=== PATIENT | male | born 1940 | race Caucasian/White ===

== ENCOUNTER 2016-04-13 02:44 | Emergency (ER) | payer MEDICARE, OTHER ==
[~2016-04-13 02:44] MED LIST: ASPI81TA85 PO; CALCTAB43 PO; CENT1TAB PO; CLOP75TA2 PO; SIMV40TA2 PO; TOPR50TA PO; VITA100041 PO; VITA100T20 PO
[2016-04-13 03:24] LABS: BASO # 0.1 K/mm3 (0.0-0.2); BASO % 1.5 % (0.0-1.0); EOS # 0.2 K/mm3 (0.0-0.50); EOS % 1.9 % (0.0-3.0); LARGE UNSTAINED CELL # 0.2 K/mm3 (0.0-0.4); LARGE UNSTAINED CELL % 2.3 % (0.0-4.0); MEAN CORPUSCULAR HEMOGLOBIN 32.1 pg (27.0-33.0); MEAN CORPUSCULAR HGB CONC 33.5 g/dl (32.0-36.5); MEAN CORPUSCULAR VOLUME 95.9 fl (80.0-96.0); MONO # 0.6 K/mm3 (0.0-0.8); MONO % 7.1 % (0.0-5.0); NEUTROPHILS # 6.9 K/mm3 (1.8-7.7); NEUTROPHILS % 78.3 % (36.0-66.0); PLATELET COUNT, AUTOMATED 179 k/mm3 (150-450); WHITE BLOOD COUNT 8.9 K/mm3 (4.0-10.0)
[2016-04-13 03:35] LABS: ANION GAP 9 MEQ/L (8-16); BLOOD UREA NITROGEN 20 MG/DL (7-18); CALCIUM LEVEL 8.6 MG/DL (8.8-10.2); CARBON DIOXIDE LEVEL 27 MEQ/L (21-32); CHLORIDE LEVEL 107 MEQ/L (98-107); CREATININE FOR GFR 1.01 MG/DL (0.70-1.30); GLOMERULAR FILTRATION RATE > 60.0 (>42); GLUCOSE, FASTING 97 MG/DL (83-110); SODIUM LEVEL 143 MEQ/L (136-145)
[2016-04-13] MEDS ORDERED: ISOVUE-370 76% 100ML VIAL (Q9967) As Ordered ONE (04:07)
--- NOTE | 2016-04-13 05:52 | REP ---
Clinical: Chest pain. Technique: PA and lateral. Comparison: 03/30/2015. Findings: Mediastinum and cardiac silhouette are normal. Lung joy demonstrate diffuse chronic interstitial changes subtle superimposed perihilar and right infrahilar infiltrates cannot be excluded. No effusion. No pneumothorax. Skeletal structures intact. Impression: Cannot exclude perihilar and right infrahilar atelectasis. Signed by Yousuf Balbuena MD 04/13/2016 05:44 A
--- NOTE | 2016-04-13 06:00 | REPUSA ---
CLINICAL HISTORY: Chest pain, exclude PE. TECHNIQUE: Multiple incremental axial, coronal and oblique images are obtained from the thoracic inle t to the upper abdomen. Intravenous contrast material was administered as per pulmonary embolism prot ocol. COMMENTS: There is excellent opacification of pulmonary arterial system without evidence for pulmonary embolism . Aorta is of normal caliber without evidence for dissection or aneurysm. There is no evidence of pleural or parenchymal mass. There are no pleural effusions. There is no evid ence of hilar or mediastinal lymphadenopathy. The heart and great vessels are within normal limits. G roundglass densities in the left upper lobe. Basilar atelectatic pulmonary changes. Images of the upper abdomen demonstrate no evidence of adrenal mass. The bony structures are free of lytic or blastic lesions. Multilevel degenerative changes are seen in volving the visualized thoracolumbar spine. Scattered calcifications are seen involving the aorta and major branches compatible with atherosclero sis. Small sliding-type hernia. 4.5 cm cyst of the left hepatic lobe. IMPRESSION: No evidence for pulmonary embolism. Groundglass densities in the left upper lobe suggestive of an infectious/inflammatory pathology. This was not present on the prior exam on 01/21/2015. Basilar atelectatic pulmonary changes. Thank you for your kind referral of this patient.
[2016-04-13] MEDS ORDERED: DOXYCYCLINE HYCLATE 100 MG TAB As Ordered ONE (06:17)
--- NOTE | 2016-04-13 06:26 | EDDOCDS ---
Nurse's Notes [facility] Name: Gera Damian Age: 75 yrs Sex: Male : 1940 Arrival Date: 04/13/2016 Time: 02:44 Bed 17 Private MD: Adrián Talamantes D Diagnosis: Bronchopneumonia, unspecified organism-DOUGLAS seen on CT only;Chest pain, unspecified Presentation: 04/13 02:52 Presenting complaint: Patient states: right sided chest pain, radiating to right arm. af2 denies n/v, or diaphoresis. pmh of mi with 4 stents. Aspirin was not taken prior to arrival. Adult Sepsis Screening: The patient does not have new or worsening altered mentation. Patient's respiratory rate is less than 22. Systolic blood pressure is greater than 100. Patient has a qSOFA score of 0- Negative Sepsis Screen. Suicide/Homicide risk assessment- the patient denies having any suicidal and/or homicidal ideations and does not present with any other emotional, behavioral or mental health complaints. Status: Patient is not a service associate or dependent. Transition of care: patient was not received from another setting of care. 02:52 Acuity: PAULINA Level 2 af2 02:52 Method Of Arrival: Walkin/Carried/Asstd af2 02:54 Presenting complaint: pain began 12 hours ago. af2 Triage Assessment: 02:57 General: Appears in no apparent distress, comfortable, Behavior is appropriate for age, af2 cooperative. Pain: Location: chest Pain currently is 4 out of 10 on a pain scale. The patient is triaged at the bedside. See Assessment in Nurses Notes section of ED record. Neurological: Level of Consciousness is awake, alert, obeys commands, Oriented to person, place, time. Cardiovascular: Rhythm is sinus rhythm No ectopy. Chest pain is described as Pain is 4 out of 10 on a pain scale. radiates to right arm(s) episodes are continuous began 12 hours ago. Respiratory: Airway is patent Respiratory effort is even, unlabored. Derm: Skin is normal. Historical: - Allergies: No known drug Allergies; - Home Meds: 1. Aspir-81 81 mg oral TbEC 1 tab once daily 2. clopidogrel 75 mg oral tab 1 tab once daily 3. metoprolol succinate 50 mg Tb24 once daily 4. simvastatin 40 mg Oral tab 1 tab once daily - PMHx: 4 cardiac stents; Hypertension; Hypercholesterolemia; - PSHx: 4 cardiac stents; Rotator Cuff Repair- Right; fusion of neck; Carpal Tunnel Repair- Bilateral; - The history from nurses notes was reviewed: and I agree with what is documented. - Social history: Smoking status: Patient states former smoker of tobacco. No barriers to communication noted, The patient speaks fluent [place], Speaks appropriately for age. - Family history: Not pertinent. - : The pt / caregiver states he / she is on anticoagulants: Plavix. Home medication list is obtained from the patient. - Hospitalizations: : No recent hospitalization is reported. - Exposure Risk Screening:: None identified. - Immunization history:: All immunizations up-to-date. - Social history:: the patient is a non-smoker, the patient does not drink alcohol. Screenin:59 Screening information is obtained from the patient. Fall risk: At risk due to age, af2 prior history of falls, The following interventions are performed due to a positive Fall Risk Screen: Fall Risk is added to Special Handling on the patient Summary Screen. A Fall Risk Bracelet was applied to the patient. Side Rails are placed in the up position. A Call [place] is given with instruction to call for help when getting out of bed. Assistance ADL's: requires no assistance with activities of daily living. Abuse/DV Screen: The patient / caregiver reports he/she is: not in a situation that causes fear, pain or injury. Nutritional screening: No deficits noted. Advance Directives: Currently, there is no health care proxy. home support is adequate. Assessment: 03:06 General: Appears in no apparent distress, Behavior is appropriate for age, cooperative. tm5 Pain: Location: chest Pain currently is 4 out of 10 on a pain scale. Quality of pain is described as heavy, pressure, Pain began about 5 hours ago tonight. Neurological: Level of Consciousness is awake, alert, obeys commands, Oriented to person, place, time. Cardiovascular: Rhythm is sinus rhythm No ectopy. Respiratory: Airway is patent Respiratory effort is even, unlabored, Respiratory pattern is regular, symmetrical, Breath sounds are clear bilaterally. GI: No deficits noted. : No deficits noted. Derm: Skin is pink, warm & dry. 04:34 Reassessment: Patient appears in no apparent distress at this time. Patient states tm5 feeling better. Patient states symptoms have improved. 05:56 Reassessment: Patient appears in no apparent distress at this time. Patient states tm5 feeling better. Patient states symptoms have improved. Cardiovascular: Rhythm is sinus rhythm. 06:24 Reassessment: Patient appears in no apparent distress at this time. Patient states tm5 feeling better. Patient states symptoms have improved. Vital Signs: 02:54 BP 143 / 85 LA Supine (auto/); Pulse 97; Resp 18 S; Temp 97.9(TE); Pulse Ox 94% on R/A; af2 Weight 95.25 kg (R); Height 6 ft. 1 in. (185.42 cm) (R); Pain 4/10; 03:02 BP 132 / 81 (auto/); tm5 03:03 Pulse 92 MON; Pulse Ox 95% on 2 lpm NC; Pain 3/10; tm5 03:32 BP 143 / 84 (auto/); tm5 03:33 Pulse 92 MON; Resp 20 S; Pulse Ox 97% on R/A; tm5 03:47 BP 133 / 78 (auto/); tm5 03:48 Pulse 90 MON; Resp 20 S; Pulse Ox 97% on R/A; tm5 04:02 BP 127 / 71 (auto/); tm5 04:03 Pulse 88 MON; Resp 18 S; Pulse Ox 96% on 2 lpm NC; Pain 0/10; tm5 04:17 BP 126 / 66 (auto/); tm5 04:18 Pulse 92 MON; tm5 04:32 BP 133 / 75 (auto/); tm5 04:32 Pulse 90 MON; Resp 20 S; Pulse Ox 95% on 2 lpm NC; tm5 04:47 BP 138 / 79 (auto/); tm5 04:48 Pulse 90 MON; tm5 05:02 BP 128 / 81 (auto/); tm5 05:02 Pulse 90 MON; tm5 05:17 BP 111 / 58 (auto/); tm5 05:17 Pulse 90 MON; Resp 20 S; Pulse Ox 96% on 2 lpm NC; Pain 0/10; tm5 06:24 BP 123 / 58; Pulse 72; Resp 18; Temp 97.8(O); Pulse Ox 95% on R/A; Pain 0/10; tm5 02:54 Body Mass Index 27.71 (95.25 kg, 185.42 cm) af2 Vitals: 02:54 Log In Time: April 13, 2016 at 02:40. af2 ED Course: 02:45 Patient visited by Devin Niño Reg. pm4 02:45 Adrián Talamantes is Private Physician. pm4 02:45 Patient moved to Waiting pm4 02:46 Katlin Andrew,RN is Primary Nurse. af2 02:46 Patient moved to 17 af2 02:54 Triage Initiated af2 02:58 The patient / caregiver is instructed regarding the plan of care and ED course. Cardiac af2 monitor on. Pulse ox on. NIBP on. 02:59 Patient visited by Augustus Landeros PCA. kb5 02:59 EKG done. (by ED staff). Reviewed by Luis Otto MD. kb5 03:03 Awaiting ED physician evaluation. tm5 03:06 Patient visited by Alyson Phan RN. tm5 03:06 Inserted saline lock: 18 gauge in right antecubital area and blood collected. The tm5 patient tolerated the procedure well. Labs drawn. (by ED staff). Sent per order to lab. O2 via nasal cannula \T\ 2L/min. 03:11 Basic Metabolic Profile Sent. tm5 03:11 CBC with Diff Sent. tm5 03:11 Cardiac Injury Profile Sent. tm5 03:12 Troponin Sent. tm5 03:14 Luis Otto MD is Attending Physician. pc 03:16 Patient moved to Radiology juve 03:17 Patient visited by Luis Otto MD. pc 03:21 Patient moved to radiology. tm5 03:25 Patient visited by Alyson Phan RN. tm5 03:25 Patient moved back from radiology. tm5 03:28 Patient moved to 17 juve 03:30 Patient visited by Alyson Phan RN. tm5 03:30 ED physician to see patient. tm5 04:30 Patient visited by Luis Otto MD. pc 04:34 Patient visited by Alyson Phan RN. tm5 05:01 [facility] Payment Agreement was scanned into [employer] and attached to record. hs2 05:56 Patient visited by Alyson Phan RN. tm5 06:12 Adrián Talamantes MD is Referral Physician. pc 06:15 Chest, 2 View (pa\E\lat) Returned. EDMS 06:15 CT Chest Angio R/O PE Returned. EDMS 06:23 Patient visited by Alyson Phan RN. tm5 06:24 Discontinued lock intact, bleeding controlled, pressure dressing applied, No tm5 redness/swelling at site. No procedures done that require assistance. Administered Medications: 06:23 Drug: Doxycycline 100 mg [doxycycline hyclate 100 mg tablet (1 tabs)] Route: PO; tm5 06:24 Follow up: Response: Pt left department before re-evaluation is appropriate tm5 Order Results: Lab Order: Basic Metabolic Profile; SPEC'M 04/13/16 03:04 Test: GLUCOSE, FASTING; Value: 97; Range: 83-110; Units: MG/DL; Status: F Test: BLOOD UREA NITROGEN; Value: 20; Range: 7-18; Abnormal: Above high normal; Units: MG/DL; Status: F Test: CREATININE FOR GFR; Value: 1.01; Range: 0.70-1.30; Units: MG/DL; Status: F Test: GLOMERULAR FILTRATION RATE; Value: > 60.0; Range: >42; Status: F Test: SODIUM LEVEL; Value: 143; Range: 136-145; Units: MEQ/L; Status: F Test: POTASSIUM SERUM; Value: 4.0; Range: 3.5-5.1; Units: MEQ/L; Status: F Test: CHLORIDE LEVEL; Value: 107; Range: 98-107; Units: MEQ/L; Status: F Test: CARBON DIOXIDE LEVEL; Value: 27; Range: 21-32; Units: MEQ/L; Status: F Test: ANION GAP; Value: 9; Range: 8-16; Units: MEQ/L; Status: F Test: CALCIUM LEVEL; Value: 8.6; Range: 8.8-10.2; Abnormal: Below low normal; Units: MG/DL; Status: F Test Note: ; Units are mL/min/1.73 m2 Chronic Kidney Disease Staging per NKF: Stage I & II GFR >=60 Normal to Mildly Decreased Stage III GFR 30-59 Moderately Decreased Stage IV GFR 15-29 Severely Decreased Stage V GFR <15 Very Little GFR Left ESRD GFR <15 on BLENDER Lab Order: CBC with Diff; SPEC'M 04/13/16 03:04 Test: WHITE BLOOD COUNT; Value: 8.9; Range: 4.0-10.0; Units: K/mm3; Status: F Test: RED BLOOD COUNT; Value: 4.45; Range: 4.30-6.10; Units: M/mm3; Status: F Test: HEMOGLOBIN; Value: 14.3; Range: 14.0-18.0; Units: g/dl; Status: F Test: HEMATOCRIT; Value: 42.7; Range: 42.0-52.0; Units: %; Status: F Test: MEAN CORPUSCULAR VOLUME; Value: 95.9; Range: 80.0-96.0; Units: fl; Status: F Test: MEAN CORPUSCULAR HEMOGLOBIN; Value: 32.1; Range: 27.0-33.0; Units: pg; Status: F Test: MEAN CORPUSCULAR HGB CONC; Value: 33.5; Range: 32.0-36.5; Units: g/dl; Status: F Test: RED CELL DISTRIBUTION WIDTH; Value: 13.0; Range: 11.5-14.5; Units: %; Status: F Test: PLATELET COUNT, AUTOMATED; Value: 179; Range: 150-450; Units: k/mm3; Status: F Test: NEUTROPHILS %; Value: 78.3; Range: 36.0-66.0; Abnormal: Above high normal; Units: %; Status: F Test: LYMPH %; Value: 9.0; Range: 24.0-44.0; Abnormal: Below low normal; Units: %; Status: F Test: MONO %; Value: 7.1; Range: 0.0-5.0; Abnormal: Above high normal; Units: %; Status: F Test: EOS %; Value: 1.9; Range: 0.0-3.0; Units: %; Status: F Test: BASO %; Value: 1.5; Range: 0.0-1.0; Abnormal: Above high normal; Units: %; Status: F Test: LARGE UNSTAINED CELL %; Value: 2.3; Range: 0.0-4.0; Units: %; Status: F Test: NEUTROPHILS #; Value: 6.9; Range: 1.8-7.7; Units: K/mm3; Status: F Test: LYMPH #; Value: 1.0; Range: 1.5-4.5; Abnormal: Below low normal; Units: K/mm3; Status: F Test: MONO #; Value: 0.6; Range: 0.0-0.8; Units: K/mm3; Status: F Test: EOS #; Value: 0.2; Range: 0.0-0.50; Units: K/mm3; Status: F Test: BASO #; Value: 0.1; Range: 0.0-0.2; Units: K/mm3; Status: F Test: LARGE UNSTAINED CELL #; Value: 0.2; Range: 0.0-0.4; Units: K/mm3; Status: F Lab Order: Cardiac Injury Profile; SPEC'M 04/13/16 03:04 Test: CPK CREATINE PHOSPHOKINASE; Value: 47; Range: 39-308; Units: U/L; Status: F Test: CK-MB VALUE MASS; Value: 1.0; Range: 0.0-3.6; Units: NG/ML; Status: F Test: MB/CK RELATIVE INDEX; Value: 2.12; Range: < OR =4; Status: F Test Note: ; DIAGNOSIS CRITERIA MMB ng/ml Relative Index (RI) NON-AMI < or = 5 N/A [place]ONE > 5 < or = 4 AMI > 5 > 4 Lab Order: Troponin; SPEC'M 04/13/16 03:04 Test: TROPONIN I; Value: < 0.02; Range: < 0.10; Units: NG/ML; Status: F Test Note: ; Troponin I Reference Interval for Biomeme LOCI: 99th Percentile= 0.00-0.045 ng/ml Risk Stratification: <= 0.10 ng/ml Decreased Risk for Adverse Clinical Events. 0.10-1.50 ng/ml Increased Risk for Adverse Clinical Events. Evaluation of additional criterion and/or repeat testing in 2-6 hours is suggested to rule out myocardial damage. >= 1.50 ng/ml Indicative of Myocardial Injury. Radiology Order: Chest, 2 View (pa\E\lat) Test: Chest, 2 View (pa\E\lat) REASON FOR EXAMINATION: Chest Pain; Clinical: Chest pain.; ; Technique: PA and lateral.; ; Comparison: 03/30/2015.; ; Findings:; Mediastinum and cardiac silhouette are normal. Lung joy demonstrate diffuse; chronic interstitial changes subtle superimposed perihilar and right infrahilar; infiltrates cannot be excluded. No effusion. No pneumothorax. Skeletal; structures intact.; ; Impression:; Cannot exclude perihilar and right infrahilar atelectasis.; ; ; Signed by; Youusf Balbuena MD 04/13/2016 05:44 A; Radiology Order: CT Chest Angio R/O PE Test: CT Chest Angio R/O PE REASON FOR EXAMINATION: Chest Pain; ; CLINICAL HISTORY: Chest pain, exclude PE.; TECHNIQUE: Multiple incremental axial, coronal and oblique images are obtained from the thoracic inle; t to the upper abdomen. Intravenous contrast material was administered as per pulmonary embolism prot; ocol.; COMMENTS:; There is excellent opacification of pulmonary arterial system without evidence for pulmonary embolism; . Aorta is of normal caliber without evidence for dissection or aneurysm.; There is no evidence of pleural or parenchymal mass. There are no pleural effusions. There is no evid; ence of hilar or mediastinal lymphadenopathy. The heart and great vessels are within normal limits. G; roundglass densities in the left upper lobe. Basilar atelectatic pulmonary changes.; Images of the upper abdomen demonstrate no evidence of adrenal mass.; The bony structures are free of lytic or blastic lesions. Multilevel degenerative changes are seen in; volving the visualized thoracolumbar spine.; Scattered calcifications are seen involving the aorta and major branches compatible with atherosclero; sis.; Small sliding-type hernia.; 4.5 cm cyst of the left hepatic lobe.; IMPRESSION:; No evidence for pulmonary embolism.; Groundglass densities in the left upper lobe suggestive of an infectious/inflammatory pathology. This; was not present on the prior exam on 01/21/2015.; Basilar atelectatic pulmonary changes.; Thank you for your kind referral of this patient.; ; Outcome: 06:14 Discharge ordered by Provider. pc 06:24 Discharge Assessment: Patient awake, alert and oriented x 3. No cognitive and/or tm5 functional deficits noted. Patient verbalized understanding of disposition instructions. patient administered narcotics - no. The following High Risk Discharge criteria are identified: None. Discharged to home ambulatory, with significant other. Condition: good Condition: stable Condition: improved. Discharge instructions given to patient, Instructed on discharge instructions, follow up and referral plans. medication usage, Demonstrated understanding of instructions, medications, Pt was receptive of discharge instructions/ teaching. Prescriptions given X 1, Work note provided to patient. CT Study completed. Property :Personal belongings accompany Pt. 06:26 Patient left the ED. tm5 Signatures: Dispatcher [employer] EDMS Luis Otto MD MD pc Bartlett, Floyd fab Bancroft, Kristopher, GARDENING INSTRUCTOR GARDENING INSTRUCTOR kb5 Katlin Andrew,RN RN af2 Alondra Ruiz, Reg Reg hs2 Alyson PhanRN RN tm5 Devin Niño, Reg Reg pm4 [id number]
--- NOTE | 2016-04-13 06:26 | EDDOCDS ---
Physician Documentation [facility] Name: Gera Damian Age: 75 yrs Sex: Male : 1940 Arrival Date: 04/13/2016 Time: 02:44 Bed 17 Private MD: Adrián Talamantes D Disposition: 04/13 06:09 Critical Care: Critical care not applicable. pc Disposition: 04/13/16 06:14 Discharged to Home/Self Care. Impression: Bronchopneumonia, unspecified organism - DOUGLAS seen on CT only, Chest pain, unspecified. - Condition is Stable. - Discharge Instructions: Pneumonia, Adult. - Prescriptions for Doxycycline Monohydrate 100 mg Oral Tablet - take 1 tablet by ORAL route every 12 hours for 10 days; 20 tablet. - Medication Reconciliation, Local Pharmacy Hours, Work Release Form - 2 day form. - Follow up: Adrián Talamantes MD; When: 4 - 5 days; Reason: Recheck today's complaints, Continuance of care. - Problem is new. - Symptoms have improved. HPI: 04:02 This 75 yrs old Male presents to ER via Walkin/Carried/Asstd with complaints pc of Chest Pain. 04:02 The history is obtained from the patient. Symptoms began suddenly 22 hr. ago, He was pc sitting in his recliner at 6am yesterday morning . Symptoms are ongoing and are constant. At its worst, the symptoms were a 4 out of 10. In the emergency department, the symptoms are a 3 out of 10. The chest pain is described as a pressure. It is located primarily in the mid-sternal area. The pain does not radiate. The chest pain was associated with no other symptoms. The symptoms are aggravated by nothing. The symptoms are alleviated by nothing. The patient's known risk factors for coronary artery disease include: a prior history of coronary artery disease, The patient's known risk factors for pulmonary embolism include: none. The patient has not experienced similar symptoms in the past. The patient has been recently seen by their primary care provider, for a routine, regularly scheduled appointment. Historical: - Allergies: No known drug Allergies; - Home Meds: 1. Aspir-81 81 mg oral TbEC 1 tab once daily 2. clopidogrel 75 mg oral tab 1 tab once daily 3. metoprolol succinate 50 mg Tb24 once daily 4. simvastatin 40 mg Oral tab 1 tab once daily - PMHx: 4 cardiac stents; Hypertension; Hypercholesterolemia; - PSHx: 4 cardiac stents; Rotator Cuff Repair- Right; fusion of neck; Carpal Tunnel Repair- Bilateral; - The history from nurses notes was reviewed: and I agree with what is documented. - Social history: Smoking status: Patient states former smoker of tobacco. No barriers to communication noted, The patient speaks fluent Croatian, Speaks appropriately for age. - Family history: Not pertinent. - : The pt / caregiver states he / she is on anticoagulants: Plavix. Home medication list is obtained from the patient. - Hospitalizations: : No recent hospitalization is reported. - Exposure Risk Screening:: None identified. - Immunization history:: All immunizations up-to-date. - Social history:: the patient is a non-smoker, the patient does not drink alcohol. ROS: 04:02 All systems are negative except as listed. The cardiovascular, respiratory, pc gastrointestinal and neurological components are also addressed in the HPI. Exam: 04:02 General Appearance: alert, no acute distress. pc 04:02 ENT: ear, nose and throat normal, pharynx normal. 04:02 Neck: supple, non-tender, no masses are appreciated. 04:02 Respiratory: no respiratory distress, normal breath sounds, chest non-tender. 04:02 Cardiovascular: regular pulse rate, regular heart rhythm, normal heart sounds, equal and full pulses bilaterally. 04:02 Abdomen: soft, non-tender, no organomegaly, normal bowel sounds. 04:02 Skin: skin color is normal, warm, dry. 04:02 Extremities: The extremities have a grossly normal appearance, are non-tender, without acute ROM abnormalities. 04:02 Neuro: alert, oriented to person, place and time, cranial nerves normal as tested, no motor deficits, no sensory deficits. 04:02 Psych: normal mood. Vital Signs: 02:54 BP 143 / 85 LA Supine (auto/); Pulse 97; Resp 18 S; Temp 97.9(TE); Pulse Ox 94% on R/A; af2 Weight 95.25 kg / 209.99 lbs (R); Height 6 ft. 1 in. (185.42 cm) (R); Pain 4/10; 03:02 BP 132 / 81 (auto/); tm5 03:03 Pulse 92 MON; Pulse Ox 95% on 2 lpm NC; Pain 3/10; tm5 03:32 BP 143 / 84 (auto/); tm5 03:33 Pulse 92 MON; Resp 20 S; Pulse Ox 97% on R/A; tm5 03:47 BP 133 / 78 (auto/); tm5 03:48 Pulse 90 MON; Resp 20 S; Pulse Ox 97% on R/A; tm5 04:02 BP 127 / 71 (auto/); tm5 04:03 Pulse 88 MON; Resp 18 S; Pulse Ox 96% on 2 lpm NC; Pain 0/10; tm5 04:17 BP 126 / 66 (auto/); tm5 04:18 Pulse 92 MON; tm5 04:32 BP 133 / 75 (auto/); tm5 04:32 Pulse 90 MON; Resp 20 S; Pulse Ox 95% on 2 lpm NC; tm5 04:47 BP 138 / 79 (auto/); tm5 04:48 Pulse 90 MON; tm5 05:02 BP 128 / 81 (auto/); tm5 05:02 Pulse 90 MON; tm5 05:17 BP 111 / 58 (auto/); tm5 05:17 Pulse 90 MON; Resp 20 S; Pulse Ox 96% on 2 lpm NC; Pain 0/10; tm5 06:24 BP 123 / 58; Pulse 72; Resp 18; Temp 97.8(O); Pulse Ox 95% on R/A; Pain 0/10; tm5 02:54 Body Mass Index 27.71 (95.25 kg, 185.42 cm) af2 MDM: 02:48 ECG WITH READING ER PHYS+CARDIAG ordered. 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 tm5 03:10 IV Saline Lock ordered. tm5 03:10 Rhythm Strip to chart ordered. tm5 03:10 Undress patient appropriately for examination ordered. tm5 03:11 Basic Metabolic Profile Ordered. EDMS 03:11 CBC with Diff Ordered. EDMS 03:11 Cardiac Injury Profile Ordered. EDMS 03:11 Troponin Ordered. EDMS 03:14 Chest, 2 View (pa\E\lat) Ordered. EDMS 04:01 Basic Metabolic Profile Reviewed. pc 04:01 CBC with Diff Reviewed. pc 04:01 Cardiac Injury Profile Reviewed. pc 04:01 Troponin Reviewed. pc 04:02 Differential diagnosis: pneumonia, pulmonary embolus, unstable angina. Plan: labs, EKG, pc imaging. The patient not medicated with aspirin in the Emergency Department because the patient had taken aspirin within 24 hours prior to arrival in the Emergency Department. Test interpretation: EKG. 04:03 CT Chest Angio R/O PE Ordered. [facility] 04:44 Financial registration complete. hs2 05:01 [facility] Payment Agreement was scanned into [employer] and attached to record. hs2 06:09 Data reviewed: old medical records, vital signs, nurses notes, EKG(s), lab test pc results, all radiology studies and available results. Test interpretation: LAB - all labs as ordered have been reviewed, interpreted and considered in the overall management of the clinical presentation; X-RAY - interpreted by me, 2 view chest, no acute disease, interpreted by Radiologist and personally reviewed, Chest CT; DOUGLAS infiltrate/inflammation, no PE, else NAD. The patient has been re-examined and re-evaluated. The patient's symptoms have mildly improved after treatment. Disposition: The historical points, examination findings, and any diagnostic results supporting the provided diagnosis, were discussed with the patient or legal guardian. The need for outpatient follow up with the provider listed on their discharge instructions was discussed. They were encouraged to return to [facility], or the nearest ED, if symptoms worsen/persist, or for any other questions/concerns. 06:11 Doxycycline 100 mg PO once ordered. pc EC:02 Rate is 94 beats/min. Rhythm is regular, Normal Sinus Rhythm. QRS [place] is Normal. AR pc interval is normal. QRS interval is normal. QT interval is normal. Q waves are Old in leads III, aVF. T waves are Normal. ST Segment is depressed in leads III, aVF, V4, V5, V6, <1mm. Clinical impression: Normal Sinus Rhythm, LVH with strain pattern, and Inferior [place] - age indeterminate. No change from previous ECG in March,. Administered Medications: 06:23 Drug: Doxycycline 100 mg [doxycycline hyclate 100 mg tablet (1 tabs)] Route: PO; tm5 06:24 Follow up: Response: Pt left department before re-evaluation is appropriate tm5 Signatures: Dispatcher [employer] [facility] Luis Otto MD MD pc Katlin Andrew RN RN af2 Alondra Ruiz, Reg Reg hs2 Matice,Alyson,RN RN tm5 The chart was reviewed and I authenticate all verbal orders and agree with the evaluation and treatment provided.Attachments: 05:01 [facility] Payment Agreement hs2 MTDD
--- NOTE | 2016-04-13 07:29 | ECGEPIP ---
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
--- NOTE | 2016-04-15 07:27 | EDDOCDS ---
Nurse's Notes [facility] Name: Gera Correia Age: 75 yrs Sex: Male : 1940 Arrival Date: 04/13/2016 Time: 02:44 Bed 17 Private MD: Adrián Talamantes D Diagnosis: Bronchopneumonia, unspecified organism-DOUGLAS seen on CT only;Chest pain, unspecified Presentation: 04/13 02:52 Presenting complaint: Patient states: right sided chest pain, radiating to right arm. af2 denies n/v, or diaphoresis. pmh of mi with 4 stents. Aspirin was not taken prior to arrival. Adult Sepsis Screening: The patient does not have new or worsening altered mentation. Patient's respiratory rate is less than 22. Systolic blood pressure is greater than 100. Patient has a qSOFA score of 0- Negative Sepsis Screen. Suicide/Homicide risk assessment- the patient denies having any suicidal and/or homicidal ideations and does not present with any other emotional, behavioral or mental health complaints. Status: Patient is not a service vehicle operator or dependent. Transition of care: patient was not received from another setting of care. 02:52 Acuity: PAULINA Level 2 af2 02:52 Method Of Arrival: Walkin/Carried/Asstd af2 02:54 Presenting complaint: pain began 12 hours ago. af2 Triage Assessment: 02:57 General: Appears in no apparent distress, comfortable, Behavior is appropriate for age, af2 cooperative. Pain: Location: chest Pain currently is 4 out of 10 on a pain scale. The patient is triaged at the bedside. See Assessment in Nurses Notes section of ED record. Neurological: Level of Consciousness is awake, alert, obeys commands, Oriented to person, place, time. Cardiovascular: Rhythm is sinus rhythm No ectopy. Chest pain is described as Pain is 4 out of 10 on a pain scale. radiates to right arm(s) episodes are continuous began 12 hours ago. Respiratory: Airway is patent Respiratory effort is even, unlabored. Derm: Skin is normal. Historical: - Allergies: No known drug Allergies; - Home Meds: 1. Aspir-81 81 mg oral TbEC 1 tab once daily 2. clopidogrel 75 mg oral tab 1 tab once daily 3. metoprolol succinate 50 mg Tb24 once daily 4. simvastatin 40 mg Oral tab 1 tab once daily - PMHx: 4 cardiac stents; Hypertension; Hypercholesterolemia; - PSHx: 4 cardiac stents; Rotator Cuff Repair- Right; fusion of neck; Carpal Tunnel Repair- Bilateral; - The history from nurses notes was reviewed: and I agree with what is documented. - Social history: Smoking status: Patient states former smoker of tobacco. No barriers to communication noted, The patient speaks fluent Botswanan, Speaks appropriately for age. - Family history: Not pertinent. - : The pt / caregiver states he / she is on anticoagulants: Plavix. Home medication list is obtained from the patient. - Hospitalizations: : No recent hospitalization is reported. - Exposure Risk Screening:: None identified. - Immunization history:: All immunizations up-to-date. - Social history:: the patient is a non-smoker, the patient does not drink alcohol. Screenin:59 Screening information is obtained from the patient. Fall risk: At risk due to age, af2 prior history of falls, The following interventions are performed due to a positive Fall Risk Screen: Fall Risk is added to Special Handling on the patient Summary Screen. A Fall Risk Bracelet was applied to the patient. Side Rails are placed in the up position. A Call [place] is given with instruction to call for help when getting out of bed. Assistance ADL's: requires no assistance with activities of daily living. Abuse/DV Screen: The patient / caregiver reports he/she is: not in a situation that causes fear, pain or injury. Nutritional screening: No deficits noted. Advance Directives: Currently, there is no health care proxy. home support is adequate. Assessment: 03:06 General: Appears in no apparent distress, Behavior is appropriate for age, cooperative. tm5 Pain: Location: chest Pain currently is 4 out of 10 on a pain scale. Quality of pain is described as heavy, pressure, Pain began about 5 hours ago tonight. Neurological: Level of Consciousness is awake, alert, obeys commands, Oriented to person, place, time. Cardiovascular: Rhythm is sinus rhythm No ectopy. Respiratory: Airway is patent Respiratory effort is even, unlabored, Respiratory pattern is regular, symmetrical, Breath sounds are clear bilaterally. GI: No deficits noted. : No deficits noted. Derm: Skin is pink, warm & dry. 04:34 Reassessment: Patient appears in no apparent distress at this time. Patient states tm5 feeling better. Patient states symptoms have improved. 05:56 Reassessment: Patient appears in no apparent distress at this time. Patient states tm5 feeling better. Patient states symptoms have improved. Cardiovascular: Rhythm is sinus rhythm. 06:24 Reassessment: Patient appears in no apparent distress at this time. Patient states tm5 feeling better. Patient states symptoms have improved. Vital Signs: 02:54 BP 143 / 85 LA Supine (auto/); Pulse 97; Resp 18 S; Temp 97.9(TE); Pulse Ox 94% on R/A; af2 Weight 95.25 kg (R); Height 6 ft. 1 in. (185.42 cm) (R); Pain 4/10; 03:02 BP 132 / 81 (auto/); tm5 03:03 Pulse 92 MON; Pulse Ox 95% on 2 lpm NC; Pain 3/10; tm5 03:32 BP 143 / 84 (auto/); tm5 03:33 Pulse 92 MON; Resp 20 S; Pulse Ox 97% on R/A; tm5 03:47 BP 133 / 78 (auto/); tm5 03:48 Pulse 90 MON; Resp 20 S; Pulse Ox 97% on R/A; tm5 04:02 BP 127 / 71 (auto/); tm5 04:03 Pulse 88 MON; Resp 18 S; Pulse Ox 96% on 2 lpm NC; Pain 0/10; tm5 04:17 BP 126 / 66 (auto/); tm5 04:18 Pulse 92 MON; tm5 04:32 BP 133 / 75 (auto/); tm5 04:32 Pulse 90 MON; Resp 20 S; Pulse Ox 95% on 2 lpm NC; tm5 04:47 BP 138 / 79 (auto/); tm5 04:48 Pulse 90 MON; tm5 05:02 BP 128 / 81 (auto/); tm5 05:02 Pulse 90 MON; tm5 05:17 BP 111 / 58 (auto/); tm5 05:17 Pulse 90 MON; Resp 20 S; Pulse Ox 96% on 2 lpm NC; Pain 0/10; tm5 06:24 BP 123 / 58; Pulse 72; Resp 18; Temp 97.8(O); Pulse Ox 95% on R/A; Pain 0/10; tm5 02:54 Body Mass Index 27.71 (95.25 kg, 185.42 cm) af2 Vitals: 02:54 Log In Time: April 13, 2016 at 02:40. af2 ED Course: 02:45 Patient visited by Devin Niño Reg. pm4 02:45 Adrián Talamantes is Private Physician. pm4 02:45 Patient moved to Waiting pm4 02:46 Katlin Andrew,RN is Primary Nurse. af2 02:46 Patient moved to 17 af2 02:54 Triage Initiated af2 02:58 The patient / caregiver is instructed regarding the plan of care and ED course. Cardiac af2 monitor on. Pulse ox on. NIBP on. 02:59 Patient visited by Augustus Landeros PCA. kb5 02:59 EKG done. (by ED staff). Reviewed by Luis Otto MD. kb5 03:03 Awaiting ED physician evaluation. tm5 03:06 Patient visited by Alyson Phan RN. tm5 03:06 Inserted saline lock: 18 gauge in right antecubital area and blood collected. The tm5 patient tolerated the procedure well. Labs drawn. (by ED staff). Sent per order to lab. O2 via nasal cannula \T\ 2L/min. 03:11 Basic Metabolic Profile Sent. tm5 03:11 CBC with Diff Sent. tm5 03:11 Cardiac Injury Profile Sent. tm5 03:12 Troponin Sent. tm5 03:14 Luis Otto MD is Attending Physician. pc 03:16 Patient moved to Radiology juve 03:17 Patient visited by Luis Otto MD. pc 03:21 Patient moved to radiology. tm5 03:25 Patient visited by Alyson Phan RN. tm5 03:25 Patient moved back from radiology. tm5 03:28 Patient moved to 17 juve 03:30 Patient visited by Alyson Phan RN. tm5 03:30 ED physician to see patient. tm5 04:30 Patient visited by Luis Otto MD. pc 04:34 Patient visited by Alyson Phan RN. tm5 05:01 [facility] Payment Agreement was scanned into [employer] and attached to record. hs2 05:56 Patient visited by Alyson Phan RN. tm5 06:12 Adrián Talamantes MD is Referral Physician. pc 06:15 Chest, 2 View (pa\E\lat) Returned. EDMS 06:15 CT Chest Angio R/O PE Returned. EDMS 06:23 Patient visited by Alyson Phan RN. tm5 06:24 Discontinued lock intact, bleeding controlled, pressure dressing applied, No tm5 redness/swelling at site. No procedures done that require assistance. 07:36 ECG WITH READING ER PHYS Returned. EDMS 14:46 ECG/EKG was scanned into [employer] and attached to record. gb 14:46 Radiology Report was scanned into [employer] and attached to record. gb Administered Medications: 06:23 Drug: Doxycycline 100 mg [doxycycline hyclate 100 mg tablet (1 tabs)] Route: PO; tm5 06:24 Follow up: Response: Pt left department before re-evaluation is appropriate tm5 Order Results: Lab Order: Basic Metabolic Profile; SPEC'M 04/13/16 03:04 Test: GLUCOSE, FASTING; Value: 97; Range: 83-110; Units: MG/DL; Status: F Test: BLOOD UREA NITROGEN; Value: 20; Range: 7-18; Abnormal: Above high normal; Units: MG/DL; Status: F Test: CREATININE FOR GFR; Value: 1.01; Range: 0.70-1.30; Units: MG/DL; Status: F Test: GLOMERULAR FILTRATION RATE; Value: > 60.0; Range: >42; Status: F Test: SODIUM LEVEL; Value: 143; Range: 136-145; Units: MEQ/L; Status: F Test: POTASSIUM SERUM; Value: 4.0; Range: 3.5-5.1; Units: MEQ/L; Status: F Test: CHLORIDE LEVEL; Value: 107; Range: 98-107; Units: MEQ/L; Status: F Test: CARBON DIOXIDE LEVEL; Value: 27; Range: 21-32; Units: MEQ/L; Status: F Test: ANION GAP; Value: 9; Range: 8-16; Units: MEQ/L; Status: F Test: CALCIUM LEVEL; Value: 8.6; Range: 8.8-10.2; Abnormal: Below low normal; Units: MG/DL; Status: F Test Note: ; Units are mL/min/1.73 m2 Chronic Kidney Disease Staging per NKF: Stage I & II GFR >=60 Normal to Mildly Decreased Stage III GFR 30-59 Moderately Decreased Stage IV GFR 15-29 Severely Decreased Stage V GFR <15 Very Little GFR Left ESRD GFR <15 on SOCIAL INSURANCE ADMINISTRATOR Lab Order: CBC with Diff; SPEC'M 04/13/16 03:04 Test: WHITE BLOOD COUNT; Value: 8.9; Range: 4.0-10.0; Units: K/mm3; Status: F Test: RED BLOOD COUNT; Value: 4.45; Range: 4.30-6.10; Units: M/mm3; Status: F Test: HEMOGLOBIN; Value: 14.3; Range: 14.0-18.0; Units: g/dl; Status: F Test: HEMATOCRIT; Value: 42.7; Range: 42.0-52.0; Units: %; Status: F Test: MEAN CORPUSCULAR VOLUME; Value: 95.9; Range: 80.0-96.0; Units: fl; Status: F Test: MEAN CORPUSCULAR HEMOGLOBIN; Value: 32.1; Range: 27.0-33.0; Units: pg; Status: F Test: MEAN CORPUSCULAR HGB CONC; Value: 33.5; Range: 32.0-36.5; Units: g/dl; Status: F Test: RED CELL DISTRIBUTION WIDTH; Value: 13.0; Range: 11.5-14.5; Units: %; Status: F Test: PLATELET COUNT, AUTOMATED; Value: 179; Range: 150-450; Units: k/mm3; Status: F Test: NEUTROPHILS %; Value: 78.3; Range: 36.0-66.0; Abnormal: Above high normal; Units: %; Status: F Test: LYMPH %; Value: 9.0; Range: 24.0-44.0; Abnormal: Below low normal; Units: %; Status: F Test: MONO %; Value: 7.1; Range: 0.0-5.0; Abnormal: Above high normal; Units: %; Status: F Test: EOS %; Value: 1.9; Range: 0.0-3.0; Units: %; Status: F Test: BASO %; Value: 1.5; Range: 0.0-1.0; Abnormal: Above high normal; Units: %; Status: F Test: LARGE UNSTAINED CELL %; Value: 2.3; Range: 0.0-4.0; Units: %; Status: F Test: NEUTROPHILS #; Value: 6.9; Range: 1.8-7.7; Units: K/mm3; Status: F Test: LYMPH #; Value: 1.0; Range: 1.5-4.5; Abnormal: Below low normal; Units: K/mm3; Status: F Test: MONO #; Value: 0.6; Range: 0.0-0.8; Units: K/mm3; Status: F Test: EOS #; Value: 0.2; Range: 0.0-0.50; Units: K/mm3; Status: F Test: BASO #; Value: 0.1; Range: 0.0-0.2; Units: K/mm3; Status: F Test: LARGE UNSTAINED CELL #; Value: 0.2; Range: 0.0-0.4; Units: K/mm3; Status: F Lab Order: Cardiac Injury Profile; SPEC'M 04/13/16 03:04 Test: CPK CREATINE PHOSPHOKINASE; Value: 47; Range: 39-308; Units: U/L; Status: F Test: CK-MB VALUE MASS; Value: 1.0; Range: 0.0-3.6; Units: NG/ML; Status: F Test: MB/CK RELATIVE INDEX; Value: 2.12; Range: < OR =4; Status: F Test Note: ; DIAGNOSIS CRITERIA MMB ng/ml Relative Index (RI) NON-AMI < or = 5 N/A ARI[place] ZONE > 5 < or = 4 AMI > 5 > 4 Lab Order: Troponin; SPEC'M 04/13/16 03:04 Test: TROPONIN I; Value: < 0.02; Range: < 0.10; Units: NG/ML; Status: F Test Note: ; Troponin I Reference Interval for [employer] [place] LOCI: 99th Percentile= 0.00-0.045 ng/ml Risk Stratification: <= 0.10 ng/ml Decreased Risk for Adverse Clinical Events. 0.10-1.50 ng/ml Increased Risk for Adverse Clinical Events. Evaluation of additional criterion and/or repeat testing in 2-6 hours is suggested to rule out myocardial damage. >= 1.50 ng/ml Indicative of Myocardial Injury. 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; : 1940 Requested By: Luis Wevaer; Order Number: [id number] Reading MD: Ekaterina Montalvo; Measurements; Intervals Eloy; Rate: 94 P: 19; NH: 169 QRS: -5; QRSD: 98 T: 12; QT: 335; QTc: 419; Interpretive Statements; SINUS RHYTHM; LEFT VENTRICULAR HYPERTROPHY AND ST-T CHANGE VS ISCHEMIA; INCREASED RATE 03/31/15; Electronically Signed On 04-13-2016 7:29:32 EST by Ekaterina Montalvo; Radiology Order: Chest, 2 View (pa\E\lat) Test: Chest, 2 View (pa\E\lat) REASON FOR EXAMINATION: Chest Pain; Clinical: Chest pain.; ; Technique: PA and lateral.; ; Comparison: 03/30/2015.; ; Findings:; Mediastinum and cardiac silhouette are normal. Lung joy demonstrate diffuse; chronic interstitial changes subtle superimposed perihilar and right infrahilar; infiltrates cannot be excluded. No effusion. No pneumothorax. Skeletal; structures intact.; ; Impression:; Cannot exclude perihilar and right infrahilar atelectasis.; ; ; Signed by; Yousuf Balbuena MD 04/13/2016 05:44 A; Radiology Order: CT Chest Angio R/O PE Test: CT Chest Angio R/O PE REASON FOR EXAMINATION: Chest Pain; ; CLINICAL HISTORY: Chest pain, exclude PE.; TECHNIQUE: Multiple incremental axial, coronal and oblique images are obtained from the thoracic inle; t to the upper abdomen. Intravenous contrast material was administered as per pulmonary embolism prot; ocol.; COMMENTS:; There is excellent opacification of pulmonary arterial system without evidence for pulmonary embolism; . Aorta is of normal caliber without evidence for dissection or aneurysm.; There is no evidence of pleural or parenchymal mass. There are no pleural effusions. There is no evid; ence of hilar or mediastinal lymphadenopathy. The heart and great vessels are within normal limits. G; roundglass densities in the left upper lobe. Basilar atelectatic pulmonary changes.; Images of the upper abdomen demonstrate no evidence of adrenal mass.; The bony structures are free of lytic or blastic lesions. Multilevel degenerative changes are seen in; volving the visualized thoracolumbar spine.; Scattered calcifications are seen involving the aorta and major branches compatible with atherosclero; sis.; Small sliding-type hernia.; 4.5 cm cyst of the left hepatic lobe.; IMPRESSION:; No evidence for pulmonary embolism.; Groundglass densities in the left upper lobe suggestive of an infectious/inflammatory pathology. This; was not present on the prior exam on 01/21/2015.; Basilar atelectatic pulmonary changes.; Thank you for your kind referral of this patient.; ; Outcome: 06:14 Discharge ordered by Provider. pc 06:24 Discharge Assessment: Patient awake, alert and oriented x 3. No cognitive and/or tm5 functional deficits noted. Patient verbalized understanding of disposition instructions. patient administered narcotics - no. The following High Risk Discharge criteria are identified: None. Discharged to home ambulatory, with significant other. Condition: good Condition: stable Condition: improved. Discharge instructions given to patient, Instructed on discharge instructions, follow up and referral plans. medication usage, Demonstrated understanding of instructions, medications, Pt was receptive of discharge instructions/ teaching. Prescriptions given X 1, Work note provided to patient. CT Study completed. Property :Personal belongings accompany Pt. 06:26 Patient left the ED. tm5 Signatures: Dispatcher [employer] EDMS Luis Otto MD MD pc Bartlett, Floyd fab Barnhardt, Gloria, Reg Reg gb Augustus Landeros, PARAFFIN PLANT OPERATOR PARAFFIN PLANT OPERATOR kb5 Katlin AndrewRN RN af2 Alondra Ruiz, Reg Reg hs2 Alyson Phan RN RN tm5 Devin Niño, Reg Reg pm4 Chart Complete MTDD
--- NOTE | 2016-04-15 07:27 | EDDOCDS ---
Physician Documentation [facility] Name: Gera Damian Age: 75 yrs Sex: Male : 1940 Arrival Date: 04/13/2016 Time: 02:44 Bed 17 Private MD: Adrián Talamantes D Disposition: 04/13 06:09 Critical Care: Critical care not applicable. pc Disposition: 04/13/16 06:14 Discharged to Home/Self Care. Impression: Bronchopneumonia, unspecified organism - DOUGLAS seen on CT only, Chest pain, unspecified. - Condition is Stable. - Discharge Instructions: Pneumonia, Adult. - Prescriptions for Doxycycline Monohydrate 100 mg Oral Tablet - take 1 tablet by ORAL route every 12 hours for 10 days; 20 tablet. - Medication Reconciliation, Local Pharmacy Hours, Work Release Form - 2 day form. - Follow up: Adrián Talamantes MD; When: 4 - 5 days; Reason: Recheck today's complaints, Continuance of care. - Problem is new. - Symptoms have improved. HPI: 04:02 This 75 yrs old Male presents to ER via Walkin/Carried/Asstd with complaints pc of Chest Pain. 04:02 The history is obtained from the patient. Symptoms began suddenly 22 hr. ago, He was pc sitting in his recliner at 6am yesterday morning . Symptoms are ongoing and are constant. At its worst, the symptoms were a 4 out of 10. In the emergency department, the symptoms are a 3 out of 10. The chest pain is described as a pressure. It is located primarily in the mid-sternal area. The pain does not radiate. The chest pain was associated with no other symptoms. The symptoms are aggravated by nothing. The symptoms are alleviated by nothing. The patient's known risk factors for coronary artery disease include: a prior history of coronary artery disease, The patient's known risk factors for pulmonary embolism include: none. The patient has not experienced similar symptoms in the past. The patient has been recently seen by their primary care provider, for a routine, regularly scheduled appointment. Historical: - Allergies: No known drug Allergies; - Home Meds: 1. Aspir-81 81 mg oral TbEC 1 tab once daily 2. clopidogrel 75 mg oral tab 1 tab once daily 3. metoprolol succinate 50 mg Tb24 once daily 4. simvastatin 40 mg Oral tab 1 tab once daily - PMHx: 4 cardiac stents; Hypertension; Hypercholesterolemia; - PSHx: 4 cardiac stents; Rotator Cuff Repair- Right; fusion of neck; Carpal Tunnel Repair- Bilateral; - The history from nurses notes was reviewed: and I agree with what is documented. - Social history: Smoking status: Patient states former smoker of tobacco. No barriers to communication noted, The patient speaks fluent Telugu, Speaks appropriately for age. - Family history: Not pertinent. - : The pt / caregiver states he / she is on anticoagulants: Plavix. Home medication list is obtained from the patient. - Hospitalizations: : No recent hospitalization is reported. - Exposure Risk Screening:: None identified. - Immunization history:: All immunizations up-to-date. - Social history:: the patient is a non-smoker, the patient does not drink alcohol. ROS: 04:02 All systems are negative except as listed. The cardiovascular, respiratory, pc gastrointestinal and neurological components are also addressed in the HPI. Exam: 04:02 General Appearance: alert, no acute distress. pc 04:02 ENT: ear, nose and throat normal, pharynx normal. 04:02 Neck: supple, non-tender, no masses are appreciated. 04:02 Respiratory: no respiratory distress, normal breath sounds, chest non-tender. 04:02 Cardiovascular: regular pulse rate, regular heart rhythm, normal heart sounds, equal and full pulses bilaterally. 04:02 Abdomen: soft, non-tender, no organomegaly, normal bowel sounds. 04:02 Skin: skin color is normal, warm, dry. 04:02 Extremities: The extremities have a grossly normal appearance, are non-tender, without acute ROM abnormalities. 04:02 Neuro: alert, oriented to person, place and time, cranial nerves normal as tested, no motor deficits, no sensory deficits. 04:02 Psych: normal mood. Vital Signs: 02:54 BP 143 / 85 LA Supine (auto/); Pulse 97; Resp 18 S; Temp 97.9(TE); Pulse Ox 94% on R/A; af2 Weight 95.25 kg / 209.99 lbs (R); Height 6 ft. 1 in. (185.42 cm) (R); Pain 4/10; 03:02 BP 132 / 81 (auto/); tm5 03:03 Pulse 92 MON; Pulse Ox 95% on 2 lpm NC; Pain 3/10; tm5 03:32 BP 143 / 84 (auto/); tm5 03:33 Pulse 92 MON; Resp 20 S; Pulse Ox 97% on R/A; tm5 03:47 BP 133 / 78 (auto/); tm5 03:48 Pulse 90 MON; Resp 20 S; Pulse Ox 97% on R/A; tm5 04:02 BP 127 / 71 (auto/); tm5 04:03 Pulse 88 MON; Resp 18 S; Pulse Ox 96% on 2 lpm NC; Pain 0/10; tm5 04:17 BP 126 / 66 (auto/); tm5 04:18 Pulse 92 MON; tm5 04:32 BP 133 / 75 (auto/); tm5 04:32 Pulse 90 MON; Resp 20 S; Pulse Ox 95% on 2 lpm NC; tm5 04:47 BP 138 / 79 (auto/); tm5 04:48 Pulse 90 MON; tm5 05:02 BP 128 / 81 (auto/); tm5 05:02 Pulse 90 MON; tm5 05:17 BP 111 / 58 (auto/); tm5 05:17 Pulse 90 MON; Resp 20 S; Pulse Ox 96% on 2 lpm NC; Pain 0/10; tm5 06:24 BP 123 / 58; Pulse 72; Resp 18; Temp 97.8(O); Pulse Ox 95% on R/A; Pain 0/10; tm5 02:54 Body Mass Index 27.71 (95.25 kg, 185.42 cm) af2 MDM: 02:48 ECG WITH READING ER PHYS+CARDIAG ordered. 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 tm5 03:10 IV Saline Lock ordered. tm5 03:10 Rhythm Strip to chart ordered. tm5 03:10 Undress patient appropriately for examination ordered. tm5 03:11 Basic Metabolic Profile Ordered. EDMS 03:11 CBC with Diff Ordered. EDMS 03:11 Cardiac Injury Profile Ordered. EDMS 03:11 Troponin Ordered. EDMS 03:14 Chest, 2 View (pa\E\lat) Ordered. EDMS 04:01 Basic Metabolic Profile Reviewed. pc 04:01 CBC with Diff Reviewed. pc 04:01 Cardiac Injury Profile Reviewed. pc 04:01 Troponin Reviewed. pc 04:02 Differential diagnosis: pneumonia, pulmonary embolus, unstable angina. Plan: labs, EKG, pc imaging. The patient not medicated with aspirin in the Emergency Department because the patient had taken aspirin within 24 hours prior to arrival in the Emergency Department. Test interpretation: EKG. 04:03 CT Chest Angio R/O PE Ordered. [facility] 04:44 Financial registration complete. hs2 05:01 [facility] Payment Agreement was scanned into [employer] and attached to record. hs2 06:09 Data reviewed: old medical records, vital signs, nurses notes, EKG(s), lab test pc results, all radiology studies and available results. Test interpretation: LAB - all labs as ordered have been reviewed, interpreted and considered in the overall management of the clinical presentation; X-RAY - interpreted by me, 2 view chest, no acute disease, interpreted by Radiologist and personally reviewed, Chest CT; DOUGLAS infiltrate/inflammation, no PE, else NAD. The patient has been re-examined and re-evaluated. The patient's symptoms have mildly improved after treatment. Disposition: The historical points, examination findings, and any diagnostic results supporting the provided diagnosis, were discussed with the patient or legal guardian. The need for outpatient follow up with the provider listed on their discharge instructions was discussed. They were encouraged to return to [facility], or the nearest ED, if symptoms worsen/persist, or for any other questions/concerns. 06:11 Doxycycline 100 mg PO once ordered. pc 14:46 ECG/EKG was scanned into [employer] and attached to record. gb 14:46 Radiology Report was scanned into [employer] and attached to record. EC:02 Rate is 94 beats/min. Rhythm is regular, Normal Sinus Rhythm. QRS [place] is Normal. MD pc interval is normal. QRS interval is normal. QT interval is normal. Q waves are Old in leads III, aVF. T waves are Normal. ST Segment is depressed in leads III, aVF, V4, V5, V6, <1mm. Clinical impression: Normal Sinus Rhythm, LVH with strain pattern, and Inferior [place] - age indeterminate. No change from previous ECG in March,. Administered Medications: 06:23 Drug: Doxycycline 100 mg [doxycycline hyclate 100 mg tablet (1 tabs)] Route: PO; tm5 06:24 Follow up: Response: Pt left department before re-evaluation is appropriate tm5 Signatures: Dispatcher [employer] EDAZ Luis Otto, MD MD pc Sherley Degroot, Reg Reg gb Katlin AndrewRN RN af2 Alondra Ruiz, Reg Reg hs2 Alyson Phan,RN RN tm5 The chart was reviewed and I authenticate all verbal orders and agree with the evaluation and treatment provided.Attachments: 05:01 [facility] Payment Agreement hs2 14:46 ECG/EKG gb Chart Complete MTDD
--- NOTE | 2016-04-15 07:27 | EDDOCDS ---
Physician Documentation [facility] Name: Gera Damian Age: 75 yrs Sex: Male : 1940 Arrival Date: 04/13/2016 Time: 02:44 Bed 17 Private MD: Adrián Talamantes D Disposition: 04/13 06:09 Critical Care: Critical care not applicable. pc Disposition: 04/13/16 06:14 Discharged to Home/Self Care. Impression: Bronchopneumonia, unspecified organism - DOUGLAS seen on CT only, Chest pain, unspecified. - Condition is Stable. - Discharge Instructions: Pneumonia, Adult. - Prescriptions for Doxycycline Monohydrate 100 mg Oral Tablet - take 1 tablet by ORAL route every 12 hours for 10 days; 20 tablet. - Medication Reconciliation, Local Pharmacy Hours, Work Release Form - 2 day form. - Follow up: Adrián Talamantes MD; When: 4 - 5 days; Reason: Recheck today's complaints, Continuance of care. - Problem is new. - Symptoms have improved. HPI: 04:02 This 75 yrs old Male presents to ER via Walkin/Carried/Asstd with complaints pc of Chest Pain. 04:02 The history is obtained from the patient. Symptoms began suddenly 22 hr. ago, He was pc sitting in his recliner at 6am yesterday morning . Symptoms are ongoing and are constant. At its worst, the symptoms were a 4 out of 10. In the emergency department, the symptoms are a 3 out of 10. The chest pain is described as a pressure. It is located primarily in the mid-sternal area. The pain does not radiate. The chest pain was associated with no other symptoms. The symptoms are aggravated by nothing. The symptoms are alleviated by nothing. The patient's known risk factors for coronary artery disease include: a prior history of coronary artery disease, The patient's known risk factors for pulmonary embolism include: none. The patient has not experienced similar symptoms in the past. The patient has been recently seen by their primary care provider, for a routine, regularly scheduled appointment. Historical: - Allergies: No known drug Allergies; - Home Meds: 1. Aspir-81 81 mg oral TbEC 1 tab once daily 2. clopidogrel 75 mg oral tab 1 tab once daily 3. metoprolol succinate 50 mg Tb24 once daily 4. simvastatin 40 mg Oral tab 1 tab once daily - PMHx: 4 cardiac stents; Hypertension; Hypercholesterolemia; - PSHx: 4 cardiac stents; Rotator Cuff Repair- Right; fusion of neck; Carpal Tunnel Repair- Bilateral; - The history from nurses notes was reviewed: and I agree with what is documented. - Social history: Smoking status: Patient states former smoker of tobacco. No barriers to communication noted, The patient speaks fluent Spanish, Speaks appropriately for age. - Family history: Not pertinent. - : The pt / caregiver states he / she is on anticoagulants: Plavix. Home medication list is obtained from the patient. - Hospitalizations: : No recent hospitalization is reported. - Exposure Risk Screening:: None identified. - Immunization history:: All immunizations up-to-date. - Social history:: the patient is a non-smoker, the patient does not drink alcohol. ROS: 04:02 All systems are negative except as listed. The cardiovascular, respiratory, pc gastrointestinal and neurological components are also addressed in the HPI. Exam: 04:02 General Appearance: alert, no acute distress. pc 04:02 ENT: ear, nose and throat normal, pharynx normal. 04:02 Neck: supple, non-tender, no masses are appreciated. 04:02 Respiratory: no respiratory distress, normal breath sounds, chest non-tender. 04:02 Cardiovascular: regular pulse rate, regular heart rhythm, normal heart sounds, equal and full pulses bilaterally. 04:02 Abdomen: soft, non-tender, no organomegaly, normal bowel sounds. 04:02 Skin: skin color is normal, warm, dry. 04:02 Extremities: The extremities have a grossly normal appearance, are non-tender, without acute ROM abnormalities. 04:02 Neuro: alert, oriented to person, place and time, cranial nerves normal as tested, no motor deficits, no sensory deficits. 04:02 Psych: normal mood. Vital Signs: 02:54 BP 143 / 85 LA Supine (auto/); Pulse 97; Resp 18 S; Temp 97.9(TE); Pulse Ox 94% on R/A; af2 Weight 95.25 kg / 209.99 lbs (R); Height 6 ft. 1 in. (185.42 cm) (R); Pain 4/10; 03:02 BP 132 / 81 (auto/); tm5 03:03 Pulse 92 MON; Pulse Ox 95% on 2 lpm NC; Pain 3/10; tm5 03:32 BP 143 / 84 (auto/); tm5 03:33 Pulse 92 MON; Resp 20 S; Pulse Ox 97% on R/A; tm5 03:47 BP 133 / 78 (auto/); tm5 03:48 Pulse 90 MON; Resp 20 S; Pulse Ox 97% on R/A; tm5 04:02 BP 127 / 71 (auto/); tm5 04:03 Pulse 88 MON; Resp 18 S; Pulse Ox 96% on 2 lpm NC; Pain 0/10; tm5 04:17 BP 126 / 66 (auto/); tm5 04:18 Pulse 92 MON; tm5 04:32 BP 133 / 75 (auto/); tm5 04:32 Pulse 90 MON; Resp 20 S; Pulse Ox 95% on 2 lpm NC; tm5 04:47 BP 138 / 79 (auto/); tm5 04:48 Pulse 90 MON; tm5 05:02 BP 128 / 81 (auto/); tm5 05:02 Pulse 90 MON; tm5 05:17 BP 111 / 58 (auto/); tm5 05:17 Pulse 90 MON; Resp 20 S; Pulse Ox 96% on 2 lpm NC; Pain 0/10; tm5 06:24 BP 123 / 58; Pulse 72; Resp 18; Temp 97.8(O); Pulse Ox 95% on R/A; Pain 0/10; tm5 02:54 Body Mass Index 27.71 (95.25 kg, 185.42 cm) af2 MDM: 02:48 ECG WITH READING ER PHYS+CARDIAG ordered. 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 tm5 03:10 IV Saline Lock ordered. tm5 03:10 Rhythm Strip to chart ordered. tm5 03:10 Undress patient appropriately for examination ordered. tm5 03:11 Basic Metabolic Profile Ordered. EDMS 03:11 CBC with Diff Ordered. EDMS 03:11 Cardiac Injury Profile Ordered. EDMS 03:11 Troponin Ordered. EDMS 03:14 Chest, 2 View (pa\E\lat) Ordered. EDMS 04:01 Basic Metabolic Profile Reviewed. pc 04:01 CBC with Diff Reviewed. pc 04:01 Cardiac Injury Profile Reviewed. pc 04:01 Troponin Reviewed. pc 04:02 Differential diagnosis: pneumonia, pulmonary embolus, unstable angina. Plan: labs, EKG, pc imaging. The patient not medicated with aspirin in the Emergency Department because the patient had taken aspirin within 24 hours prior to arrival in the Emergency Department. Test interpretation: EKG. 04:03 CT Chest Angio R/O PE Ordered. [facility] 04:44 Financial registration complete. hs2 05:01 [facility] Payment Agreement was scanned into [employer] and attached to record. hs2 06:09 Data reviewed: old medical records, vital signs, nurses notes, EKG(s), lab test pc results, all radiology studies and available results. Test interpretation: LAB - all labs as ordered have been reviewed, interpreted and considered in the overall management of the clinical presentation; X-RAY - interpreted by me, 2 view chest, no acute disease, interpreted by Radiologist and personally reviewed, Chest CT; DOUGLAS infiltrate/inflammation, no PE, else NAD. The patient has been re-examined and re-evaluated. The patient's symptoms have mildly improved after treatment. Disposition: The historical points, examination findings, and any diagnostic results supporting the provided diagnosis, were discussed with the patient or legal guardian. The need for outpatient follow up with the provider listed on their discharge instructions was discussed. They were encouraged to return to [facility], or the nearest ED, if symptoms worsen/persist, or for any other questions/concerns. 06:11 Doxycycline 100 mg PO once ordered. pc 14:46 ECG/EKG was scanned into [employer] and attached to record. gb 14:46 Radiology Report was scanned into [employer] and attached to record. EC:02 Rate is 94 beats/min. Rhythm is regular, Normal Sinus Rhythm. QRS [place] is Normal. OR pc interval is normal. QRS interval is normal. QT interval is normal. Q waves are Old in leads III, aVF. T waves are Normal. ST Segment is depressed in leads III, aVF, V4, V5, V6, <1mm. Clinical impression: Normal Sinus Rhythm, LVH with strain pattern, and Inferior [place] - age indeterminate. No change from previous ECG in March,. Administered Medications: 06:23 Drug: Doxycycline 100 mg [doxycycline hyclate 100 mg tablet (1 tabs)] Route: PO; tm5 06:24 Follow up: Response: Pt left department before re-evaluation is appropriate tm5 Signatures: Dispatcher [employer] EDOH Luis Otto, MD MD pc Sherley Degroot, Reg Reg gb Katlin AndrewRN RN af2 Alondra Ruiz, Reg Reg hs2 Alyson Phan,RN RN tm5 The chart was reviewed and I authenticate all verbal orders and agree with the evaluation and treatment provided.Attachments: 05:01 [facility] Payment Agreement hs2 14:46 ECG/EKG gb Chart Complete MTDD
== END 2016-04-13 06:26 | disposition home or self-care (01) ==
LOC: M ED 02:44
DX: J18.0 Bronchopneumonia, unspecified organism (principal); I10 Essential (primary) hypertension; E78.00 Pure hypercholesterolemia, unspecified; Z95.5 Presence of coronary angioplasty implant and graft; Z79.899 Other long term (current) drug therapy; Z79.82 Long term (current) use of aspirin; Z79.01 Long term (current) use of anticoagulants
CPT/HCPCS: 36415; 71020; 71275; 80048; 82550; 82553; 84484; 85025; 93005; 93041; 99285; Q9967

== ENCOUNTER → 2016-04-25 | Outpatient (CLI) | payer OTHER ==
--- NOTE | 2016-04-25 16:42 | REP ---
PA and lateral chest: Comparisons are 04/13/2016 and 01/21/2015. On the 04/13/2016, bilateral perihilar infiltrates and right infrahilar infiltrate were identified. These infiltrates have resolved. There are no new infiltrates. No pleural effusions. Lung joy otherwise clear and unchanged. Cardiac size is mildly enlarged and is slightly larger than previously. The rory and mediastinum are unchanged. There is an orthopedic anchor screw in the right humeral head, unchanged. Impression: Resolved infiltrates. Mild cardiomegaly.
== END ==
LOC: M CLY 11:02
PROVIDERS: ATTEND Physician Assistant
DX: J18.1 Lobar pneumonia, unspecified organism (principal)

== ENCOUNTER 2016-11-08 13:41 | Emergency (ER) | payer OTHER ==
[~2016-11-08] VITALS: Ht 182.9 cm; Wt 96.3 kg
[2016-11-08 13:41] VITALS: BP 137/84
[~2016-11-08 13:41] MED LIST changes: -CALCTAB43 PO; +CALCTAB74 PO; +VITA-182 PO; -VITA100041 PO
== END 2016-11-08 15:42 | disposition home or self-care (01) ==
LOC: M ED 13:41
DX: S00.36XA Insect bite (nonvenomous) of nose, initial encounter (principal); W57.XXXA Bitten or stung by nonvenomous insect and other nonvenomous arthropods, initial encounter; Y92.9 Unspecified place or not applicable; Y93.9 Activity, unspecified; Y99.9 Unspecified external cause status; I25.2 Old myocardial infarction; I10 Essential (primary) hypertension; Z95.5 Presence of coronary angioplasty implant and graft; Z87.891 Personal history of nicotine dependence; Z79.82 Long term (current) use of aspirin; Z79.899 Other long term (current) drug therapy

== ENCOUNTER → 2016-11-17 | Outpatient (CLI) | payer OTHER ==
[~2016-11-17] MED LIST changes: +LISI-542 PO; +PRIM50TA6 PO
[2016-11-17 11:51] LABS: FOLATE 18.6 NG/ML
== END ==
LOC: M LAB 09:10
PROVIDERS: ATTEND Psychiatry & Neurology Neurology
DX: R25.1 Tremor, unspecified (principal)

== ENCOUNTER 2016-12-24 10:20 | Emergency (ER) | payer OTHER ==
[~2016-12-24] VITALS: Ht 182.9 cm; Wt 95.5 kg
[~2016-12-24 10:20] MED LIST changes: -LISI-542 PO; -PRIM50TA6 PO
[2016-12-24] MEDS ORDERED: PRIM50TA6 PO (10:30)
[2016-12-24 11:37] LABS: BASO % 0.4 % (0.0-1.0); EOS # 0.2 10^3/uL (0.0-0.50); EOS % 3.6 % (0.0-3.0); IMMATURE GRANULOCYTE % 0.2 % (0-0); LYMPH # 1.3 10^3/uL (1.5-4.5); LYMPH % 23.4 % (24.0-44.0); MEAN CORPUSCULAR HEMOGLOBIN 32.4 pg (27.0-33.0); MEAN CORPUSCULAR VOLUME 92.7 fl (80.0-96.0); MONO # 0.5 10^3/uL (0.0-0.8); MONO % 9.7 % (0.0-5.0); NEUTROPHILS # 3.4 10^3/uL (1.8-7.7); NEUTROPHILS % 62.7 % (36.0-66.0); PLATELET COUNT, AUTOMATED 178 10^3/uL (150-450); RED CELL DISTRIBUTION WIDTH 12.5 % (11.5-14.5); WHITE BLOOD COUNT 5.5 10^3/uL (4.0-10.0)
[2016-12-24 11:40] LABS: ADD MANUAL DIFFER NO; DIFF SLIDE NUMBER 118
[2016-12-24 12:08] LABS: ANION GAP 6 MEQ/L (8-16); BLOOD UREA NITROGEN 16 MG/DL (7-18); CALCIUM LEVEL 8.9 MG/DL (8.8-10.2); CARBON DIOXIDE LEVEL 28 MEQ/L (21-32); CHLORIDE LEVEL 104 MEQ/L (98-107); CREATININE FOR GFR 0.78 MG/DL (0.70-1.30); GLOMERULAR FILTRATION RATE > 60.0 (>42); GLUCOSE, FASTING 93 MG/DL (83-110); POTASSIUM SERUM 4.1 MEQ/L (3.5-5.1); SODIUM LEVEL 138 MEQ/L (136-145)
--- NOTE | 2016-12-24 12:49 | ECGEPIP ---
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
[2016-12-24] MEDS ORDERED: LISINOPRIL 10 MG TAB PO ONE (13:00)
[2016-12-24 13:05] VITALS: BP 164/97
--- NOTE | 2016-12-24 14:18 | REP ---
REASON: Headache. PRIORS: None. The ventricles and sulci are within normal limits for the patient's age. There is a focal area of decreased density seen in the left parieto-occipital region. The deep white matter is otherwise essentially unremarkable for the patient's age. There are no extra-axial fluid collections. There is no shift of the midline structures. The imaged paranasal sinuses and mastoid air cells are clear. IMPRESSION: Possible left posterior parieto-occipital infarction, the exact etiology of which cannot be determined by this exam. There are no priors for comparison. Signed by Luis Frederick DO 12/24/2016 02:20 P
[2016-12-24] MEDS ORDERED: LISI-542 PO (17:38)
[2016-12-24 17:50] VITALS: BP 126/94
--- NOTE | 2016-12-25 08:04 | REP ---
REASON: CVA. PRIORS: None. There is no aneurysm or arteriovenous malformation. 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 There are no other vascular abnormalities noted. IMPRESSION: No acute disease. Findings as described above. Signed by Luis Frederick DO 12/25/2016 12:11 P
--- NOTE | 2016-12-25 08:09 | REP ---
REASON: Stroke like symptoms. MRI BRAIN: TECHNIQUE: Sagittal T1. Axial T2, FLAIR, DWI and ADC. FINDINGS: The craniocervical junction is normal. There is no cerebellar tonsillar ectopia. The visualized portions of the spinal cord and neural canal are within normal limits. The ventricles and sulci are within normal limits for the patient's age. There are no extra-axial fluid collections. There is no shift of the midline structures. Seen throughout the deep cerebral and periventricular white matter of the lyn radiata and centrum semiovale bilaterally there is scattered FLAIR and T2 hypersignal. Diffusion weighted images and ADC mapping shows no signal abnormality. The orbital and petrous structures, cerebellopontine angles, and posterior fossa are within normal limits. The sella turcica, cavernous and paracavernous structures are within normal limits. The visualized portions of the paranasal sinuses and the mastoid air cells are clear. 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 Due to the patient's advanced age demyelinating processes from diseases such as multiple sclerosis would not be in the differential unless it was diagnosed at an earlier age. This needs to be correlated clinically. Signed by Luis Frederick DO 12/25/2016 12:12 P
== END 2016-12-24 17:51 | disposition home or self-care (01) ==
LOC: M ED 10:20
DX: I16.0 Hypertensive urgency (principal); Z79.82 Long term (current) use of aspirin; Z79.899 Other long term (current) drug therapy; R93.0 Abnormal findings on diagnostic imaging of skull and head, not elsewhere classified

== ENCOUNTER 2017-05-14 05:31 | Emergency (ER) | payer OTHER ==
[2017-05-14] MEDS: KETOROLAC 60 MG/2 ML VIAL (J1885) IM (06:34)
== END 2017-05-14 06:55 | disposition home or self-care (01) ==
LOC: M ED 05:31
DX: S46.812A Strain of other muscles, fascia and tendons at shoulder and upper arm level, left arm, initial encounter (principal); V49.49XA Driver injured in collision with other motor vehicles in traffic accident, initial encounter; Y92.410 Unspecified street and highway as the place of occurrence of the external cause; I10 Essential (primary) hypertension; I25.10 Atherosclerotic heart disease of native coronary artery without angina pectoris; G25.0 Essential tremor; Z79.899 Other long term (current) drug therapy; Z79.82 Long term (current) use of aspirin
CPT/HCPCS: J1885

== ENCOUNTER → 2017-06-12 | Outpatient (CLI) | payer OTHER | LOC: M RAD 10:13 | DX: M25.512 Pain in left shoulder (principal); R93.7 Abnormal findings on diagnostic imaging of other parts of musculoskeletal system | CPT/HCPCS: 73221 ==

== ENCOUNTER → 2018-02-01 | Outpatient (CLI) | payer OTHER | LOC: M RAD 17:12 | DX: S46.012D Strain of muscle(s) and tendon(s) of the rotator cuff of left shoulder, subsequent encounter (principal); X58.XXXD Exposure to other specified factors, subsequent encounter; Y92.9 Unspecified place or not applicable | CPT/HCPCS: 73221 ==

== ENCOUNTER 2018-07-05 18:48 | Observation (INO) | payer MEDICARE, OTHER ==
[~2018-07-05] VITALS: Ht 182.9 cm; Wt 87.7 kg
[~2018-07-05 18:48] MED LIST changes: +BACL10TA2 PO; +LISI-542 PO; +LISI10TA4 PO; +PRIM50TA6; +PRIM50TA6 PO; -VITA100T20 PO; +VITA100T51 PO
[2018-07-05] MEDS ORDERED: CALC1TAB63 PO (20:04)
[2018-07-05] MEDS ORDERED: LISI10TA4 PO (20:04)
[2018-07-05] MEDS ORDERED: VITA100016 PO (20:04)
[2018-07-05 20:07] LABS: BASO % 0.2 % (0.0-1.0); EOS # 0.1 10^3/uL (0.0-0.50); EOS % 0.7 % (0.0-3.0); HEMATOCRIT 36.6 % (42.0-52.0); HEMOGLOBIN 12.4 g/dl (13.5-17.5); LYMPH # 0.7 10^3/uL (1.5-4.5); LYMPH % 7.1 % (24.0-44.0); MEAN CORPUSCULAR HEMOGLOBIN 31.6 pg (27.0-33.0); MEAN CORPUSCULAR HGB CONC 33.9 g/dl (32.0-36.5); MEAN CORPUSCULAR VOLUME 93.4 fl (80.0-96.0); MONO # 0.9 10^3/uL (0.0-0.8); NEUTROPHILS # 8.4 10^3/uL (1.8-7.7); NEUTROPHILS % 82.7 % (36.0-66.0); PLATELET COUNT, AUTOMATED 194 10^3/uL (150-450); RED BLOOD COUNT 3.92 10^6/uL (4.30-6.10); WHITE BLOOD COUNT 10.2 10^3/uL (4.0-10.0)
--- NOTE | 2018-07-05 20:12 | REPVR ---
EXAM: CT Head Without Contrast EXAM DATE/TIME: 07/05/2018 7:39 PM CLINICAL HISTORY: 77 years old, male; Signs and symptoms; Syncope and collapse TECHNIQUE: Imaging protocol: Axial computed tomography images of the head/brain without contrast. Radiation optimization: All CT scans at this facility use at least one of these dose optimization techniques: automated exposure control; mA and/or kV adjustment per patient size (includes targeted exams where dose is matched to clinical indication); or iterative reconstruction. COMPARISON: CT Head without contrast 12/24/2016 12:53 PM FINDINGS: Brain: There is mild patchy low attenuation of deep white matter. Ventricles: There is slight prominence of the central ventricular system. Bones/joints: Unremarkable. No acute fracture. Sinuses: Visualized sinuses are unremarkable. No acute sinusitis. Mastoid air cells: Visualized mastoid air cells are unremarkable. No mastoid effusion. Soft tissues: Unremarkable. IMPRESSION: 1. There has been no change since 12/24/2016. No acute interval intracranial process is identified. 2. Mild chronic ischemic white matter change and minimal atrophy. Electronically signed by: Jim May On 07/05/2018 20:11:48 PM
[2018-07-05 20:30] LABS: BLOOD UREA NITROGEN 22 MG/DL (7-18); CALCIUM LEVEL 8.5 MG/DL (8.8-10.2); CARBON DIOXIDE LEVEL 29 MEQ/L (21-32); CHLORIDE LEVEL 106 MEQ/L (98-107); CPK CREATINE PHOSPHOKINASE 106 U/L (39-308); CREATININE FOR GFR 0.94 MG/DL (0.70-1.30); ETHYL ALCOHOL (ETHANOL) < 0.003 % (0.000-0.010); GLOMERULAR FILTRATION RATE > 60.0 (>42); GLUCOSE, FASTING 97 MG/DL (70-100); POTASSIUM SERUM 4.2 MEQ/L (3.5-5.1); SODIUM LEVEL 140 MEQ/L (136-145); TROPONIN I 0.02 NG/ML (< 0.10)
[2018-07-05 22:43] LABS: AMPHETAMINES LEVEL URINE NEGATIVE (NEGATIVE); BARBITURATES URINE NEGATIVE (NEGATIVE); BENZODIAZEPINES URINE NEGATIVE (NEGATIVE); CANNABINOIDS URINE NEGATIVE (NEGATIVE); COCAINE METABOLITE URINE NEGATIVE (NEGATIVE); METHADONE URINE NEGATIVE (NEGATIVE); OPIATES URINE NEGATIVE (NEGATIVE); PHENCYCLIDINE URINE NEGATIVE (NEGATIVE)
[2018-07-05 23:44] LABS: MAGNESIUM LEVEL 1.9 MG/DL (1.8-2.4)
[2018-07-05] MEDS ORDERED: NS 1,000 ML IV SCH (23:45)
[2018-07-06 02:00] VITALS: BP 126/70
[2018-07-06 06:00] VITALS: BP 133/72
[2018-07-06 06:53] LABS: HEMATOCRIT 35.2 % (42.0-52.0); HEMOGLOBIN 11.9 g/dl (13.5-17.5); MEAN CORPUSCULAR HEMOGLOBIN 31.3 pg (27.0-33.0); MEAN CORPUSCULAR HGB CONC 33.8 g/dl (32.0-36.5); MEAN CORPUSCULAR VOLUME 92.6 fl (80.0-96.0); PLATELET COUNT, AUTOMATED 182 10^3/uL (150-450); WHITE BLOOD COUNT 6.4 10^3/uL (4.0-10.0)
[2018-07-06 07:22] LABS: BLOOD UREA NITROGEN 16 MG/DL (7-18); CALCIUM LEVEL 8.1 MG/DL (8.8-10.2); CARBON DIOXIDE LEVEL 26 MEQ/L (21-32); CHLORIDE LEVEL 108 MEQ/L (98-107); CPK CREATINE PHOSPHOKINASE 80 U/L (39-308); CREATININE FOR GFR 0.84 MG/DL (0.70-1.30); GLOMERULAR FILTRATION RATE > 60.0 (>42); GLUCOSE, FASTING 95 MG/DL (70-100); POTASSIUM SERUM 3.8 MEQ/L (3.5-5.1); SODIUM LEVEL 140 MEQ/L (136-145); TROPONIN I 0.02 NG/ML (< 0.10)
--- NOTE | 2018-07-06 08:03 | HPE ---
DATE OF ADMISSION: 07/05/2018 PRIMARY CARE PHYSICIAN: Dr. Talamantes in [place]. GREASE MACHINE WORKER: Dr. Yeboah. NEUROLOGIST: Dr. Morales. SUBJECTIVE: Mr. Damian is a 77-year-old male with a notable history of a myocardial infarction (IA) status post four stents in 2006 who presents to the emergency room (ER) for multiple syncopal episodes since succession earlier today. He states he had his nine upper teeth removed earlier today around 10 a.m. and was later eating around 5 p.m. and suddenly lost consciousness per his . He states he had no presyncopal symptoms at all. Denies any chest pain, shortness of breath, lightheadedness, dizziness, nausea, vomiting prior to and after the episodes. He states he remembers eating his food and then waking up with his head in the food with his trying to help him. He states per his , his happened seven times in a row, however, he only remembers three episodes. The first one lasted around 5 minutes, and the second and third episodes lasted less than 1 minute each. He states in total this occurred within 20-30 minute time frame and denies any seizure like activity with the episode. 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 He denies any other symptoms and at the time of admission, states he feels back to his normal self and has no complaints. Labs and imaging are otherwise unremarkable. He will be admitted for syncopal workup. PAST MEDICAL HISTORY: Myocardial infarction in 2006 with four stents. Resting tremors. B12 deficiency. Hypertension. SURGICAL HISTORY: Cardiac stents in January 2007 with one stent replaced in 2009. Cervical spine fusion. Right rotator cuff repair. Bilateral carpal tunnel. Bilateral cataracts. ALLERGIES: None. FAMILY HISTORY: Mother had diabetes. SOCIAL HISTORY: Quit tobacco 35 years ago. He had smoked for a total of 20 years. Initially he had smoked two packs per day for the first 5 years and then one pack per day afterwards. Alcohol: States he drank heavily and also quit 35 years ago. Drank half a bottle of [place] [employer] and a six pack of beer almost daily back then. Currently is retired. 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 HOME MEDICATIONS: - aspirin 81 mg by mouth daily - baclofen 10 mg by mouth twice daily - calcium/vitamin D supplements - vitamin D3 1000 unit by mouth daily - Plavix 75 mg by mouth daily - vitamin B12 100 mcg by mouth daily - lisinopril 10 mg by mouth daily - metoprolol succinate 50 mg by mouth daily - multivitamin daily - simvastatin 40 mg by mouth daily REVIEW OF SYSTEMS: General: Denies any fever or chills, night sweats, weight loss. HEENT: Denies any blurred vision, eye pain, ear pain, dysphagia or headaches. Cardiac: Denies chest pain, palpitations, lightheadedness, dizziness. Respiratory: Denies coughing, wheezing, shortness of breath or phlegm. GI: Denies nausea, vomiting, abdominal pain. No changes in bowels or blood loss. Skin: Denies any new lesions, rashes or ulcerations. Musculoskeletal: Denies any new weaknesses, muscle aches or joint aches. Neuro: Admits to a resting tremor which he follows with neurology. Denies any new paresthesias, confusion, slurred speech, facial droop or any new pins or needles. PHYSICAL EXAMINATION: Vitals: Temperature 96.0, pulse 77, respirations 18, blood pressure 117/64, map of 81, pulse oximetry 94% on room air. General: Pleasant, elderly gentleman resting in bed, no acute distress. Alert and oriented times three. Fully conversant. HEENT: Normocephalic, atraumatic. Extraocular muscles intact. Pupils equal, round and reactive to light. Dry oral mucosa. Neck is supple without any jugular venous distention (JVD). Cardiac: Regular rate and rhythm with 2/6 systolic murmur present that radiates to the axilla. No clicks or gallops. Lungs: Equal chest rise bilaterally. Clear to auscultation without any adventitious sounds. Abdomen: Soft, nontender, nondistended, positive bowel sounds. Extremities: No edema or calf tenderness. 2+ radial and dorsalis pedis pulses bilaterally. Musculoskeletal: 5/5 strength in all limbs. 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 Neuro: Resting tremor bilateral upper extremities present. Motor and sensation intact. No focal deficits. He is fully alert and oriented. No facial droop or confusion or slurred speech. Skin: No visible lesions. Good perfusion present. LABS: WBC 10.2, hemoglobin and hematocrit 12.4/36.6, platelets 194. Electrolytes normal. BUN and creatinine 22 and 0.94. Lactate 0.7. Cardiac markers negative. TSH 1.6. Toxicology screen negative. Head CT is read as no interval change. Chest x-ray is pending but otherwise appears unremarkable. ASSESSMENT AND PLAN: 1. Syncope. Given clinical picture and workup thus far, it appears less likely to be cardiogenic or neurogenic in nature. His initial cardiac markers are negative times one. Will trend for additional two sets and also obtain an echo. He feels back to his baseline when assessed on admission. Syncope is likely secondary to vasovagal versus postural in etiology. Will check orthostatics every 8 hours. He also appears to be dry on exam. Will gently hydrate on IV fluids. Recommend physical therapy (PT). If workup is negative, patient may benefit from outpatient followup with his final block press operator. Of note, he states he has had similar episode of syncope in the past in 2009 which was deemed secondary to low blood pressure. Electrolytes are noted to be normal as is his thyroid and lactate, unlikely to be infectious. His vitals are otherwise stable. Unlikely to be thrombogenic. 2. History of myocardial infarction status post four stents. Cardiac markers are negative with unremarkable EKG on admission. Continue home aspirin and Plavix. Statin as well. 3. Hypertension, well controlled. Continue home lisinopril and metoprolol and continue orthostatic checks. 4. B12 deficiency. Patient is on supplementation at home. 5. Resting tremors. He normally follows with Dr. Morales and does not appear to be on any medications. 6. Deep venous thrombosis (DVT) prophylaxis, mechanical. DISPOSITION: Will admit to the hospitalist service under observation pending further workup. My faculty preceptor for this patient encounter was physically present during the encounter and was fully available. All aspects of the patient interview, examination, medical decision making process, and medical care plan development were reviewed and approved by the faculty preceptor. The faculty preceptor is aware and concurs with the plan as stated in the body of this note and will attest to such by his/her cosignature.
[2018-07-06] MEDS ORDERED: LISINOPRIL 10 MG TAB PO SCH (09:00)
[2018-07-06] MEDS ORDERED: ASPIRIN 81 MG ENTERIC TAB PO SCH ×2 (09:00→21:00)
[2018-07-06] MEDS ORDERED: MULTIVITAMINS/MINERALS THERAP 1 TAB PO SCH (09:00)
[2018-07-06] MEDS ORDERED: METOPROLOL SUCC (TopROL XL) 50MG **XL** TAB PO SCH (09:00)
[2018-07-06] MEDS ORDERED: CLOPIDOGREL 75 MG TAB PO SCH ×2 (09:00→21:00)
[2018-07-06] MEDS ORDERED: SIMVASTATIN 40 MG TAB PO SCH (09:00)
[2018-07-06] MEDS ORDERED: VITAMIN D 1,000 INTERNATIONAL UNITS TABLET PO SCH (09:00)
[2018-07-06 09:11] VITALS: BP 155/80
[2018-07-06 14:00] VITALS: BP 148/74
[2018-07-06 14:28] LABS: CPK CREATINE PHOSPHOKINASE 73 U/L (39-308); MB/CK RELATIVE INDEX 2.73 (< OR =4); TROPONIN I < 0.02 NG/ML (< 0.10)
--- NOTE | 2018-07-07 07:33 | ECHO ---
DATE OF PROCEDURE: 07/06/2018 AGE: 77 GENDER: Male REFERRING PHYSICIAN: Dr. Leela Cole. HEIGHT: 72 inches. WEIGHT: 194 pounds. BODY SURFACE AREA: 2.1 m2 INPATIENT: [address] [place] [address] room 4215 INDICATION: Syncope. MEASUREMENTS: 2D MEASUREMENTS: RV - 3.8 cm LV- 5.4 cm Septum - 1.1 cm Posterior wall - 1.1 cm Aortic root - 3.7 cm LA - 3.6 cm LVEF - 65% DOPPLER MEASUREMENTS: AV - 1.4 m/s LVOT - 1.2 m/s LVOT diameter - 2.1 cm MV-E: 89 A: 121 EA ratio 0.7 Early mitral deacceleration time 268 ms E-prime - 5.7 A-prime - 10 E/E prime ratio 15.6 PCWP: 16 mmHg PV - 0.9 m/s Pulmonary artery acceleration time 129 ms PASP - 24 mmHg IVC - 1.8 cm COMMENTS: Normal sinus rhythm without intraventricular conduction disturbance. M-mode and two-dimensional echocardiography was performed with pulsed, continuous wave, color flow and tissue Doppler studies. Normal left ventricular size, wall thickness and wall motion. Normal left atrial size with Doppler evidence of impairment of LV diastolic function (as might be seen with his age alone) with estimated mean left atrial pressure upper limits of normal. Normal right heart chamber sizes and motion and estimated pulmonary atrial pressure. Normal IVC size and collapse against an elevated central venous pressure. Mild aortic valvular sclerosis without stenosis and only trace insufficiency. Normal aortic root size. Slightly thickened mitral annulus, normal leaflet excursion and only very mild mitral insufficiency. Normal appearing and functioning tricuspid valve. No apparent intracardiac mass or pericardial effusion. No apparent structural or functional abnormality to account for the patient's syncopal spell. [facility]
--- NOTE | 2018-07-07 09:07 | REP ---
Portable chest, 07:58 p.m., single AP view, the patient sitting: Comparison is 06/28/2017. The There are no focal infiltrates. There are no pleural effusions. 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 Cardiac size is upper normal, unchanged. The rory, mediastinum, skeletal structures are unremarkable except for a cervical spine stabilization plate, unchanged. Impression: There is no interval change. Electronically Signed by Naveen Regan MD 07/06/2018 07:43 A
--- NOTE | 2018-07-07 20:25 | DSES ---
DATE OF ADMISSION: 07/05/2018 DATE OF DISCHARGE: 07/06/2018 DIAGNOSIS: Syncope probably vasovagal. BRIEF HISTORY AND PHYSICAL: This is a 77-year-old gentleman who presented to the emergency room last evening after some syncopal episodes just prior to admission, he apparently had passed out while eating dinner. I should note that he is still listed as a patient of mine even though I have only seen him once and that was 17 months ago. He was evaluated in the ER with labs, monitoring EKG, CT of the head and was admitted for observation. Did have a history of coronary artery disease. He has stents in place. His blood pressure was neither high or low. Admission examination showed that his blood pressure was 117/64, pulse was 77 and regular, respirations 18, temperature was 96.0. He was alert and oriented, not in any distress. Heart had a regular rhythm with a grade 2/6 systolic murmur across the precordium that radiated to the axilla. Lungs were clear. There was no edema. Lens Grinding Machine Operator were symmetric. There was some mild resting tremor. LABORATORY DATA: Hemoglobin was 12.4 and 11.9, WBCs 10.2 and 6.4. Troponins negative. CPK within normal range, BUN 22 and 16, creatinine 0.94 and 0.84. He also had a head CT that was positive for mild patchy low-attenuation of deep white matter, slightly prominent ventricular system. COURSE IN THE FACILITY: The patient was admitted to the hospital for observation. He was kept on his usual home medications. He did get some IV fluids in the emergency department. He was monitored and no arrhythmias were noted. In the afternoon of 07/06/2018, he was insistent on going home, felt that he did not need to stay any longer. He was feeling quite well and quite back to his normal self. Evaluation prior to his discharge showed that his temperature was 97.3, pulse was 76 and regular, blood pressure 148/74, respirations 17, oxygen saturation 96% on room air. He was alert, oriented and cooperative. Lens Grinding Machine Operator were symmetric, he had mild tremor. Lungs were clear. Heart had a regular rhythm with a grade 1/6 systolic murmur head across the precordium. No carotid bruits, no edema. ASSESSMENT: Syncopal episode PLAN: The patient will return to his home, continue on his usual medications, aspirin 81 mg daily, Plavix 75 mg daily, vitamin D 1000 units daily, Prinivil 10 mg daily, Toprol XL 50 mg daily, multivitamin daily, simvastatin 40 mg daily. He should be seen in my office in two weeks' time. IVAN
--- NOTE | 2018-07-07 20:31 | ECGEPIP ---
Stationary ECG Study [facility] - ED Test Date: 2018-07-05 Pat Name: VERN CORREIA Department: Room: [place] [address] Gender: M Asset Recovery Specialist: CHANDRA : 1940 Requested By: PARISA Redmond Order Number: [id number] Reading MD: Ekaterina Montalvo Measurements Intervals Ethan Rate: 73 P: 27 LA: 186 QRS: 2 QRSD: 102 T: -15 QT: 379 QTc: 420 Interpretive Statements SINUS RHYTHM POSSIBLE LEFT VENTRICULAR HYPERTROPHY NONSPECIFIC T-WAVE ABNORMALITY INFERIOR INFARCT, OLD INCREASED RATE 06/28/17 Electronically Signed On 07-07-2018 20:30:38 EDT by Ekaterina Montalvo
== END 2018-07-06 16:05 | disposition home or self-care (01) ==
LOC: M ED 18:48 → EDBD 18:48 → M ED INP 18:49 → M MSPAV 07-06 01:15
PROVIDERS: ADMIT Internal Medicine; ATTEND Internal Medicine
DX: R55 Syncope and collapse (principal); I25.10 Atherosclerotic heart disease of native coronary artery without angina pectoris; I25.2 Old myocardial infarction; Z98.61 Coronary angioplasty status; I10 Essential (primary) hypertension; E53.8 Deficiency of other specified B group vitamins; Z87.891 Personal history of nicotine dependence; Z79.899 Other long term (current) drug therapy; G25.2 Other specified forms of tremor; Z79.82 Long term (current) use of aspirin
CPT/HCPCS: 36415; 70450; 71045; 80048; 80307; 82550; 82553; 83605; 83735; 84443; 84484; 85025; 85027; 93005; 93041; 93306; 94760; 96360; 96361; 97161; 99285; G0378; G0480

== ENCOUNTER → 2019-02-07 | Outpatient (REF) | payer MEDICARE ==
[~2019-02-07] MED LIST changes: +CALC1TAB63 PO; +VITA100016 PO
== END ==
LOC: M LABNEURO 08:36
PROVIDERS: ATTEND Psychiatry & Neurology Neurology
DX: R51 Headache (principal); G93.81 Temporal sclerosis

== ENCOUNTER 2019-08-06 19:40 | Emergency (ER) | payer MEDICARE ==
[~2019-08-06] VITALS: Ht 185.4 cm; Wt 84.5 kg
[~2019-08-06 19:40] MED LIST changes: -SIMV40TA2 PO; +SIMV40TA20 PO
[2019-08-06] MEDS ORDERED: NS 1,000 ML IV ONE (20:45)
[2019-08-06 20:52] LABS: BASO % 0.2 % (0.0-1.0); EOS # 0.2 10^3/uL (0.0-0.5); HEMOGLOBIN 12.2 g/dl (13.5-17.5); LYMPH # 1.2 10^3/uL (1.5-5.0); LYMPH % 14.1 % (24.0-44.0); MEAN CORPUSCULAR HEMOGLOBIN 31.4 pg (27.0-33.0); MEAN CORPUSCULAR HGB CONC 33.9 g/dl (32.0-36.5); MEAN CORPUSCULAR VOLUME 92.8 fl (80.0-96.0); MONO # 0.6 10^3/uL (0.0-0.8); MONO % 7.5 % (0.0-5.0); NEUTROPHILS # 6.5 10^3/uL (1.5-8.5); PLATELET COUNT, AUTOMATED 154 10^3/uL (150-450); RED BLOOD COUNT 3.88 10^6/uL (4.30-6.10); WHITE BLOOD COUNT 8.6 10^3/uL (4.0-10.0)
[2019-08-06 21:05] LABS: BLOOD UREA NITROGEN 22 MG/DL (7-18); CALCIUM LEVEL 8.1 MG/DL (8.8-10.2); CARBON DIOXIDE LEVEL 27 MEQ/L (21-32); CHLORIDE LEVEL 105 MEQ/L (98-107); CK-MB VALUE MASS 3.4 NG/ML (<3.6); CPK CREATINE PHOSPHOKINASE 138 U/L (39-308); CREATININE FOR GFR 0.93 MG/DL (0.70-1.30); GLOMERULAR FILTRATION RATE > 60.0 (>35); GLUCOSE, FASTING 113 MG/DL (70-100); MB/CK RELATIVE INDEX 2.46 (< OR =4); POTASSIUM SERUM 3.9 MEQ/L (3.5-5.1); SODIUM LEVEL 139 MEQ/L (136-145); TROPONIN I < 0.02 NG/ML (< 0.10)
--- NOTE | 2019-08-06 21:18 | ECGEPIP ---
[facility] - ED Test Date: 2019-08-06 Pat Name: VERN CORREIA Department: Room: - Gender: Male Automatic Equipment Technician: : 1940 Requested By: YU YUSUF Order Number: [id number] Reading MD: Ekaterina Montalvo Measurements Intervals Ruby Rate: 70 P: 29 NE: 187 QRS: -2 QRSD: 113 T: -14 QT: 415 QTc: 449 Interpretive Statements SINUS RHYTHM WITH OCCASIONAL VENTRICULAR PREMATURE COMPLEXES POSSIBLE LEFT VENTRICULAR HYPERTROPHY INFERIOR MYOCARDIAL INFARCTION, OF INDETERMINATE AGE NSTTW abnormalities SIMILAR 07/05/18 Electronically Signed on 08-06-2019 21:18:36 EDT by Ekaterina Montalvo
[2019-08-06 21:30] VITALS: BP 109/57
== END 2019-08-06 21:40 | disposition home or self-care (01) ==
LOC: M ED 19:40
DX: E86.0 Dehydration (principal); I25.10 Atherosclerotic heart disease of native coronary artery without angina pectoris; I10 Essential (primary) hypertension; G20 Parkinson's disease; Z95.5 Presence of coronary angioplasty implant and graft; Z98.1 Arthrodesis status; Z87.891 Personal history of nicotine dependence; Z86.59 Personal history of other mental and behavioral disorders

== ENCOUNTER 2019-10-18 09:40 | Emergency (ER) | payer MEDICARE ==
[~2019-10-18 09:40] MED LIST changes: -ASPI81TA85 PO; +ASPI81TA86 PO
== END 2019-10-18 10:44 | disposition home or self-care (01) ==
LOC: M ED 09:40
DX: S09.90XA Unspecified injury of head, initial encounter (principal); W22.09XA Striking against other stationary object, initial encounter; Y92.098 Other place in other non-institutional residence as the place of occurrence of the external cause; R51 Headache; I25.10 Atherosclerotic heart disease of native coronary artery without angina pectoris; I25.2 Old myocardial infarction; G20 Parkinson's disease; Z79.02 Long term (current) use of antithrombotics/antiplatelets

== ENCOUNTER → 2020-01-06 | Outpatient (CLI) | payer MEDICARE ==
--- NOTE | 2020-01-06 09:00 | REP ---
INDICATION: PAIN IN RIGHT ANKLE COMPARISON: None. TECHNIQUE: AP, lateral, bilateral oblique views. FINDINGS: No acute fracture or dislocation. Skeletal structures and joint spaces are intact and normal. Ankle mortise appears stable. No subcutaneous emphysema or radiodense foreign body. IMPRESSION: Normal age-appropriate right ankle radiograph series. <Electronically signed by Yousuf Balbuena > 01/06/20 1990
== END ==
LOC: M LAB 08:23
PROVIDERS: ATTEND Psychiatry & Neurology Neurology
DX: M25.571 Pain in right ankle and joints of right foot (principal)

== ENCOUNTER 2020-09-22 13:45 | Emergency (ER) | payer MEDICARE ==
[~2020-09-22] VITALS: Ht 177.8 cm; Wt 81.8 kg
[~2020-09-22 13:45] MED LIST changes: -LISI-542 PO; +LISI-898 PO; +LISI10TA22 PO; -LISI10TA4 PO
[2020-09-22 13:46] VITALS: BP 142/65
== END 2020-09-22 15:52 | disposition left against medical advice (07) ==
LOC: M ED 13:45
DX: Z53.21 Procedure and treatment not carried out due to patient leaving prior to being seen by health care provider (principal)

== ENCOUNTER 2020-10-15 15:54 | Emergency (ER) | payer MEDICARE ==
[~2020-10-15] VITALS: Ht 182.9 cm; Wt 82.7 kg
[~2020-10-15 15:54] MED LIST changes: -LISI-898 PO; +LISI5TAB11 PO
[2020-10-15 15:55] VITALS: BP 144/69
[2020-10-15] MEDS ORDERED: BOOSTRIX/ADACEL VACCINE (DIPHTH/PERTUSS/ACELL/TETANUS) 0.5ML SYR IM ONE (19:10)
== END 2020-10-15 20:20 | disposition home or self-care (01) ==
LOC: M ED 15:54
DX: S01.01XA Laceration without foreign body of scalp, initial encounter (principal); W01.198A Fall on same level from slipping, tripping and stumbling with subsequent striking against other object, initial encounter; Y92.9 Unspecified place or not applicable; Y93.9 Activity, unspecified; Y99.9 Unspecified external cause status; Z91.030 Bee allergy status; Z79.01 Long term (current) use of anticoagulants; Z79.82 Long term (current) use of aspirin; Z79.899 Other long term (current) drug therapy

== ENCOUNTER → 2021-03-01 | Outpatient (REF) | payer MEDICARE ==
[2021-03-01 12:48] LABS: BLOOD UREA NITROGEN 25 MG/DL (7-18); CALCIUM LEVEL 9.2 MG/DL (8.8-10.2); CARBON DIOXIDE LEVEL 30 MEQ/L (21-32); CHLORIDE LEVEL 104 MEQ/L (98-107); CHOLESTEROL LEVEL 134 MG/DL (<200); CREATININE FOR GFR 0.92 MG/DL (0.70-1.30); GLOMERULAR FILTRATION RATE > 60.0 (>35); GLUCOSE, FASTING 95 MG/DL (70-100); HDL CHOLESTEROL 42 MG/DL (>40); LDL CHOLESTEROL 80 MG/DL (<100); NON-HDL-C 92 MG/DL; POTASSIUM SERUM 4.6 MEQ/L (3.5-5.1); SODIUM LEVEL 138 MEQ/L (136-145); TRIGLYCERIDES LEVEL 59 MG/DL (<150)
[2021-03-01 12:58] LABS: HEMOGLOBIN A1c 5.6 %
== END ==
LOC: M SFHCCLAY 07:28
PROVIDERS: ATTEND Family Medicine
DX: E78.5 Hyperlipidemia, unspecified (principal); Z13.1 Encounter for screening for diabetes mellitus; Z79.899 Other long term (current) drug therapy

== ENCOUNTER → 2021-06-30 | Outpatient (CLI) | payer MEDICARE | LOC: M PLAIMG 14:04 | PROVIDERS: ATTEND Physician Assistant | DX: M25.512 Pain in left shoulder (principal) ==

== ENCOUNTER 2021-07-21 09:25 | Emergency (ER) | payer MEDICARE ==
[~2021-07-21] VITALS: Ht 180.3 cm; Wt 84.9 kg
[2021-07-21] MEDS ORDERED: ASPIRIN 81 MG CHEW TABLET PO ONE (09:40)
[2021-07-21 10:01] LABS: BASO % 0.5 % (0.0-1.0); EOS # 0.2 10^3/uL (0.0-0.5); EOS % 2.8 % (0.0-3.0); HEMATOCRIT 37.5 % (42.0-52.0); HEMOGLOBIN 12.8 g/dl (13.5-17.5); LYMPH # 0.9 10^3/uL (1.5-5.0); LYMPH % 15.6 % (24.0-44.0); MEAN CORPUSCULAR HGB CONC 34.1 g/dl (32.0-36.5); MEAN CORPUSCULAR VOLUME 93.8 fl (80.0-96.0); MONO # 0.6 10^3/uL (0.0-0.8); MONO % 9.3 % (2.0-8.0); NEUTROPHILS # 4.3 10^3/uL (1.5-8.5); NEUTROPHILS % 71.6 % (36.0-66.0); PLATELET COUNT, AUTOMATED 164 10^3/uL (150-450)
[2021-07-21 10:24] LABS: CK-MB VALUE MASS 1.2 NG/ML (<3.6); MB/CK RELATIVE INDEX 1.6 (< OR =4)
[2021-07-21 10:26] LABS: ALBUMIN 3.4 GM/DL (3.2-5.2); ALT/SGPT 25 U/L (12-78); BILIRUBIN,DIRECT < 0.1 MG/DL (0.0-0.2); BILIRUBIN,TOTAL 0.9 MG/DL (0.2-1.0); BLOOD UREA NITROGEN 15 MG/DL (7-18); CALCIUM LEVEL 9.1 MG/DL (8.8-10.2); CARBON DIOXIDE LEVEL 28 MEQ/L (21-32); CHLORIDE LEVEL 106 MEQ/L (98-107); CREATININE FOR GFR 0.72 MG/DL (0.70-1.30); GLOMERULAR FILTRATION RATE > 60.0 (>35); GLUCOSE, FASTING 82 MG/DL (70-100); LIPASE 171 U/L (73-393); SODIUM LEVEL 137 MEQ/L (136-145); TOTAL PROTEIN 7.3 GM/DL (6.4-8.2)
[2021-07-21] MEDS ORDERED: ISOVUE-370 76% 100ML VIAL As Ordered ONE (11:14)
[2021-07-21 11:25] LABS: CK-MB VALUE MASS < 1.0 NG/ML (<3.6); CPK CREATINE PHOSPHOKINASE 47 U/L (39-308); MB/CK RELATIVE INDEX 2.13 (< OR =4)
[2021-07-21 13:06] LABS: CK-MB VALUE MASS 1.3 NG/ML (<3.6); MB/CK RELATIVE INDEX 2.95 (< OR =4)
[2021-07-21 14:31] VITALS: BP 190/87
== END 2021-07-21 15:03 | disposition home or self-care (01) ==
LOC: M ED 09:25
DX: R07.9 Chest pain, unspecified (principal); R94.31 Abnormal electrocardiogram [ECG] [EKG]; E78.5 Hyperlipidemia, unspecified; Z86.79 Personal history of other diseases of the circulatory system; Z95.5 Presence of coronary angioplasty implant and graft; Z87.891 Personal history of nicotine dependence; Z79.899 Other long term (current) drug therapy; Z79.811 Long term (current) use of aromatase inhibitors
CPT/HCPCS: 36415; 71045; 71275; 80048; 80076; 82550; 82553; 83690; 84132; 84484; 85025; 93005; 93041; 94760; 99285; Q9967

== ENCOUNTER 2022-09-28 07:48 | Observation (INO) | payer MEDICARE ==
[~2022-09-28] VITALS: Ht 180.3 cm; Wt 75.0 kg
[2022-09-28 08:31] LABS: BASO % 0.4 % (0.0-1.0); EOS # 0.1 10^3/uL (0.0-0.5); EOS % 1.3 % (0.0-3.0); HEMATOCRIT 32.4 % (42.0-52.0); HEMOGLOBIN 10.8 g/dl (13.5-17.5); LYMPH # 0.8 10^3/uL (1.5-5.0); LYMPH % 14.5 % (24.0-44.0); MEAN CORPUSCULAR HEMOGLOBIN 31.5 pg (27.0-33.0); MEAN CORPUSCULAR HGB CONC 33.3 g/dl (32.0-36.5); MEAN CORPUSCULAR VOLUME 94.5 fl (80.0-96.0); MONO # 0.4 10^3/uL (0.0-0.8); MONO % 7.3 % (2.0-8.0); NEUTROPHILS # 4.2 10^3/uL (1.5-8.5); NEUTROPHILS % 76.1 % (36.0-66.0); PLATELET COUNT, AUTOMATED 141 10^3/uL (150-450); RED BLOOD COUNT 3.43 10^6/uL (4.30-6.10); WHITE BLOOD COUNT 5.5 10^3/uL (4.0-10.0)
[2022-09-28 09:02] LABS: BLOOD UREA NITROGEN 17 MG/DL (9-23); CALCIUM LEVEL 8.1 MG/DL (8.3-10.6); CARBON DIOXIDE LEVEL 26 MMOL/L (20-31); CHLORIDE LEVEL 106 MMOL/L (98-107); CREATININE FOR GFR 0.71 MG/DL (0.70-1.30); GLOMERULAR FILTRATION RATE > 60.0 (>35); GLUCOSE, FASTING 103 MG/DL (74-106); MAGNESIUM LEVEL 1.6 MG/DL (1.8-2.4); POTASSIUM SERUM 3.7 MMOL/L (3.5-5.1); SODIUM LEVEL 137 MMOL/L (136-145)
[2022-09-28 09:04] LABS: THYROID STIMULATING HORMONE 1.199 uIU/ML (0.55-4.78)
[2022-09-28 09:05] LABS: FREE T4 1.01 NG/DL (0.89-1.76)
[2022-09-28] MEDS ORDERED: MAG SULF 1GM/100ML (MAG RUN) 1 GM in IV 1 EA IV ONE (09:20)
[2022-09-28] MEDS ORDERED: MED REC IN PROGRESS XX SCH (09:35)
[2022-09-28] MEDS ORDERED: ROSU40TA4 PO (10:40)
[2022-09-28] MEDS ORDERED: LISI20TA33 PO (10:40)
[2022-09-28] MEDS ORDERED: CARB25TA9 PO ×2 (10:40→12:09)
[2022-09-28] MEDS ORDERED: METO1TAB32 PO (10:40)
[2022-09-28] MEDS ORDERED: HOME MED LIST COMPLETE! XX SCH ×2 (10:50→12:10)
[2022-09-28] MEDS ORDERED: MED REC COMMENT (10:55)
[2022-09-28 11:06] LABS: INR 1.05; PROTHROMBIN TIME 13.9 SECONDS (12.5-14.5)
[2022-09-28 11:07] LABS: PARTIAL THROMBOPLASTIN TIME 26.4 SECONDS (24.8-34.2)
[2022-09-28] MEDS ORDERED: ASPI81CH33 PO (12:09)
[2022-09-28] MEDS ORDERED: EZET10TA21 PO (12:09)
[2022-09-28] MEDS: MAGNESIUM OXIDE 400MG TAB (MAG-OX) PO SCH ×2 (13:03→19:55)
[2022-09-28] MEDS: MULTIVITAMINS/MINERALS THERAP 1 TAB PO SCH ×2 (13:04→19:55)
[2022-09-28] MEDS: ROSUVASTATIN 10 MG TAB (CRESTOR) PO SCH (13:04)
[2022-09-28] MEDS: VITAMIN D 1,000 INTERNATIONAL UNITS TABLET PO SCH (13:04)
[2022-09-28] MEDS ORDERED: SINEMET 25-100 MG TAB PO SCH (14:00)
[2022-09-28 14:22] VITALS: BP 136/79; TEMP 97.9; O2SAT 99
[2022-09-28] MEDS: ENOXAPARIN 40MG/0.4ML SYRINGE (J1650 PER 10MG) SC SCH (15:01)
[2022-09-28] MEDS: EZETIMIBE 10MG TABLET (ZETIA) PO SCH (15:05)
[2022-09-28] MEDS: SINEMET 25-100 MG TAB PO SCH (18:01)
[2022-09-28] MEDS ORDERED: ASPIRIN 81MG ENTERIC TABLET PO SCH (21:00)
[2022-09-28] MEDS ORDERED: CLOPIDOGREL 75 MG TAB PO SCH (21:00)
[2022-09-28] MEDS ORDERED: METOPROLOL SUCC *XL* 25MG TAB (TopROL *XL*) PO SCH (21:00)
[2022-09-28 21:35] VITALS: BP 104/57; TEMP 97.5; O2SAT 98
[2022-09-29 05:08] VITALS: BP 125/69; TEMP 98.1; O2SAT 97
[2022-09-29 05:09] VITALS: BP 123/69
[2022-09-29 05:11] VITALS: BP 123/69
[2022-09-29 06:03] LABS: HEMOGLOBIN 11.8 g/dl (13.5-17.5); MEAN CORPUSCULAR HEMOGLOBIN 31.9 pg (27.0-33.0); MEAN CORPUSCULAR HGB CONC 33.7 g/dl (32.0-36.5); MEAN CORPUSCULAR VOLUME 94.6 fl (80.0-96.0); PLATELET COUNT, AUTOMATED 150 10^3/uL (150-450); WHITE BLOOD COUNT 5.4 10^3/uL (4.0-10.0)
[2022-09-29 06:23] LABS: ALBUMIN 3.1 G/DL (3.2-5.2); ALKALINE PHOSPHATASE 63 U/L (46-116); ALT/SGPT 14 U/L (7.0-40); AST/SGOT 13 U/L (<34); BILIRUBIN,TOTAL 0.8 MG/DL (0.3-1.2); BLOOD UREA NITROGEN 16 MG/DL (9-23); CALCIUM LEVEL 8.3 MG/DL (8.3-10.6); CARBON DIOXIDE LEVEL 25 MMOL/L (20-31); CHLORIDE LEVEL 105 MMOL/L (98-107); CREATININE FOR GFR 0.79 MG/DL (0.70-1.30); GLOMERULAR FILTRATION RATE > 60.0 (>35); GLUCOSE, FASTING 91 MG/DL (74-106); POTASSIUM SERUM 4.2 MMOL/L (3.5-5.1); SODIUM LEVEL 137 MMOL/L (136-145); TOTAL PROTEIN 5.9 G/DL (5.7-8.2)
[2022-09-29] MEDS: SINEMET 25-100 MG TAB PO SCH ×3 (06:25→14:02)
[2022-09-29 09:31] VITALS: BP 130/70
[2022-09-29] MEDS: VITAMIN D 1,000 INTERNATIONAL UNITS TABLET PO SCH (09:31)
[2022-09-29] MEDS: MAGNESIUM OXIDE 400MG TAB (MAG-OX) PO SCH (09:31)
[2022-09-29] MEDS: MULTIVITAMINS/MINERALS THERAP 1 TAB PO SCH (09:31)
[2022-09-29] MEDS: ROSUVASTATIN 10 MG TAB (CRESTOR) PO SCH (09:31)
[2022-09-29] MEDS: ENOXAPARIN 40MG/0.4ML SYRINGE (J1650 PER 10MG) SC SCH (09:32)
[2022-09-29 14:00] VITALS: BP 129/71; TEMP 97.7; O2SAT 98
[2022-09-29] MEDS: EZETIMIBE 10MG TABLET (ZETIA) PO SCH (14:02)
[2022-09-29] MEDS ORDERED: MAGN400T2 PO (14:47)
[2022-09-29] MEDS ORDERED: CARB25TA9 PO (14:47)
[2022-10-05] MEDS ORDERED: BENA25CA4 PO (20:35)
[2022-10-05] MEDS ORDERED: HYDR25OIN TOP (20:35)
== END 2022-09-29 16:25 | disposition home or self-care (01) ==
LOC: EDBD 07:48 → M ED 07:48 → M ED INP 10:09 → ENRESERV 13:54 → M MSPAV 14:47
PROVIDERS: ADMIT Internal Medicine; ATTEND Internal Medicine
DX: R55 Syncope and collapse (principal); E83.42 Hypomagnesemia; G20 Parkinson's disease; I25.10 Atherosclerotic heart disease of native coronary artery without angina pectoris; I10 Essential (primary) hypertension; Z98.61 Coronary angioplasty status; D51.9 Vitamin B12 deficiency anemia, unspecified; E55.9 Vitamin D deficiency, unspecified; Z79.82 Long term (current) use of aspirin; Z79.899 Other long term (current) drug therapy; Z91.030 Bee allergy status
CPT/HCPCS: 36415; 70450; 71045; 72125; 80048; 80053; 83735; 84439; 84443; 85025; 85027; 85610; 85730; 87635; 93005; 93041; 93306; 94760; 95819; 96360; 96372; 97161; 97165; 99285; G0378; J1650; J3475

== ENCOUNTER → 2022-12-06 | Outpatient (REF) | payer MEDICARE ==
[~2022-12-06] MED LIST changes: +ASPI81CH33 PO; +BENA25CA4 PO; +CARB25TA9 PO; +EZET10TA21 PO; +HYDR25OIN TOP; +LISI20TA33 PO; +MAGN400T2 PO; +MED REC COMMENT; +METO1TAB32 PO; +ROSU40TA4 PO
[2022-12-06 13:05] LABS: BASO % 0.5 % (0.0-1.0); EOS # 0.1 10^3/uL (0.0-0.5); HEMATOCRIT 38.8 % (42.0-52.0); HEMOGLOBIN 12.8 g/dl (13.5-17.5); LYMPH % 17.4 % (24.0-44.0); MEAN CORPUSCULAR HEMOGLOBIN 31.6 pg (27.0-33.0); MEAN CORPUSCULAR VOLUME 95.8 fl (80.0-96.0); MONO # 0.5 10^3/uL (0.0-0.8); MONO % 9.1 % (2.0-8.0); NEUTROPHILS # 4.2 10^3/uL (1.5-8.5); NEUTROPHILS % 70.8 % (36.0-66.0); PLATELET COUNT, AUTOMATED 169 10^3/uL (150-450); RED BLOOD COUNT 4.05 10^6/uL (4.30-6.10); WHITE BLOOD COUNT 5.9 10^3/uL (4.0-10.0)
[2022-12-06 13:25] LABS: C REACTIVE PROTEIN QUANTITATIV < 0.40 MG/DL (<1.0)
[2022-12-06 13:27] LABS: ALBUMIN 3.5 G/DL (3.2-5.2); ALKALINE PHOSPHATASE 70 U/L (46-116); ALT/SGPT 16 U/L (7.0-40); AST/SGOT 20 U/L (<34); BILIRUBIN,TOTAL 0.8 MG/DL (0.3-1.2); BLOOD UREA NITROGEN 20 MG/DL (9-23); CALCIUM LEVEL 8.7 MG/DL (8.3-10.6); CARBON DIOXIDE LEVEL 32 MMOL/L (20-31); CHLORIDE LEVEL 101 MMOL/L (98-107); CREATININE FOR GFR 0.81 MG/DL (0.70-1.30); GLOMERULAR FILTRATION RATE > 60.0 (>35); GLUCOSE, FASTING 89 MG/DL (74-106); POTASSIUM SERUM 4.6 MMOL/L (3.5-5.1); SODIUM LEVEL 137 MMOL/L (136-145); TOTAL PROTEIN 6.6 G/DL (5.7-8.2)
[2022-12-06 13:33] LABS: ERYTHROCYTE SEDIMENTATION RATE 32 mm/hr (0-20)
[2022-12-07 14:08] LABS: ANTINUCLEAR ANTIBODIES DIRECT Negative (Negative)
[2022-12-07 15:28] LABS: RHEUMATOID FACTOR QUANT < 3.5 IU/ML (<14)
== END ==
LOC: M LABDRAWC 11:49
PROVIDERS: ATTEND Physician Assistant
DX: M17.11 Unilateral primary osteoarthritis, right knee (principal); M16.11 Unilateral primary osteoarthritis, right hip; M19.011 Primary osteoarthritis, right shoulder; Z79.82 Long term (current) use of aspirin

== ENCOUNTER → 2023-01-30 | Outpatient (REF) | payer MEDICARE ==
[2023-01-30 12:25] LABS: ALBUMIN 3.6 G/DL (3.2-5.2); ALKALINE PHOSPHATASE 74 U/L (46-116); ALT/SGPT 18 U/L (7.0-40); AST/SGOT 17 U/L (<34); BILIRUBIN,TOTAL 0.9 MG/DL (0.3-1.2); BLOOD UREA NITROGEN 19 MG/DL (9-23); CALCIUM LEVEL 8.9 MG/DL (8.3-10.6); CARBON DIOXIDE LEVEL 28 MMOL/L (20-31); CHLORIDE LEVEL 104 MMOL/L (98-107); CREATININE FOR GFR 0.84 MG/DL (0.70-1.30); GLOMERULAR FILTRATION RATE > 60.0 (>35); GLUCOSE, FASTING 88 MG/DL (74-106); POTASSIUM SERUM 4.8 MMOL/L (3.5-5.1); SODIUM LEVEL 139 MMOL/L (136-145); TOTAL PROTEIN 6.7 G/DL (5.7-8.2)
[2023-01-30 12:26] LABS: FREE T4 1.05 NG/DL (0.89-1.76)
[2023-01-30 12:27] LABS: THYROID STIMULATING HORMONE 0.799 uIU/ML (0.55-4.78)
[2023-01-30 13:03] LABS: HEMOGLOBIN A1c 5.5 % (4.0-6.0)
== END ==
LOC: M SFHCCLAY 09:14
PROVIDERS: ATTEND Nurse Practitioner Family
DX: I25.10 Atherosclerotic heart disease of native coronary artery without angina pectoris (principal); E78.5 Hyperlipidemia, unspecified; I10 Essential (primary) hypertension; G20.A1 Parkinson's disease without dyskinesia, without mention of fluctuations; R13.10 Dysphagia, unspecified; R53.83 Other fatigue; Z79.899 Other long term (current) drug therapy

== ENCOUNTER 2023-03-06 08:42 | Outpatient (RCR) | payer MEDICARE | END 2023-03-18 | LOC: M ST 08:42 | PROVIDERS: ATTEND Nurse Practitioner Family | DX: R13.10 Dysphagia, unspecified (principal) ==

== ENCOUNTER → 2023-05-15 | Outpatient (CLI) | payer MEDICARE | LOC: M CLY 09:23 | PROVIDERS: ATTEND Nurse Practitioner Family | DX: M19.012 Primary osteoarthritis, left shoulder (principal) ==

== ENCOUNTER → 2023-05-15 | Outpatient (REF) | payer MEDICARE ==
[2023-05-15 12:35] LABS: HEMOGLOBIN A1c 5.5 % (4.0-6.0)
[2023-05-15 12:41] LABS: FREE T4 1.01 NG/DL (0.89-1.76); THYROID STIMULATING HORMONE 1.106 uIU/ML (0.55-4.78)
[2023-05-15 12:43] LABS: ALBUMIN 3.5 G/DL (3.2-5.2); ALKALINE PHOSPHATASE 67 U/L (46-116); ALT/SGPT < 9 U/L (7.0-40); AST/SGOT 15 U/L (<34); BILIRUBIN,TOTAL 0.9 MG/DL (0.3-1.2); BLOOD UREA NITROGEN 17 MG/DL (9-23); CALCIUM LEVEL 8.7 MG/DL (8.3-10.6); CARBON DIOXIDE LEVEL 30 MMOL/L (20-31); CHLORIDE LEVEL 107 MMOL/L (98-107); CHOLESTEROL LEVEL 132 MG/DL (<200); CHOLESTEROL RISK RATIO 3.25 (<5); CREATININE FOR GFR 0.81 MG/DL (0.70-1.30); GLOMERULAR FILTRATION RATE > 60.0 (>35); GLUCOSE, FASTING 88 MG/DL (74-106); HDL CHOLESTEROL 40.6 MG/DL (>40); LDL CHOLESTEROL 81.4 MG/DL (<100); NON-HDL-C 91.4 MG/DL; POTASSIUM SERUM 4.4 MMOL/L (3.5-5.1); SODIUM LEVEL 137 MMOL/L (136-145); TOTAL PROTEIN 6.6 G/DL (5.7-8.2); TRIGLYCERIDES LEVEL 50 MG/DL (<150)
== END ==
LOC: M SFHCCLAY 09:05
PROVIDERS: ATTEND Nurse Practitioner Family
DX: R53.83 Other fatigue (principal); I25.10 Atherosclerotic heart disease of native coronary artery without angina pectoris; R13.10 Dysphagia, unspecified; E78.5 Hyperlipidemia, unspecified; H93.13 Tinnitus, bilateral; I10 Essential (primary) hypertension; G20.A1 Parkinson's disease without dyskinesia, without mention of fluctuations; Z79.899 Other long term (current) drug therapy

== ENCOUNTER 2023-06-21 12:38 | Emergency (ER) | payer MEDICARE ==
[2023-06-21] MEDS ORDERED: HYDR-3713 PO (14:53)
[2023-06-21 15:25] VITALS: BP 173/82; TEMP 97.8; O2SAT 98
== END 2023-06-21 15:29 | disposition home or self-care (01) ==
LOC: M ED 12:38 → EDBD 12:38 → M ED 15:29
DX: S22.32XA Fracture of one rib, left side, initial encounter for closed fracture (principal); W10.8XXA Fall (on) (from) other stairs and steps, initial encounter; I25.2 Old myocardial infarction; I10 Essential (primary) hypertension; Y92.009 Unspecified place in unspecified non-institutional (private) residence as the place of occurrence of the external cause; Y93.89 Activity, other specified; Y99.9 Unspecified external cause status; Z91.030 Bee allergy status; Z79.82 Long term (current) use of aspirin; Z79.02 Long term (current) use of antithrombotics/antiplatelets; Z79.811 Long term (current) use of aromatase inhibitors; Z79.899 Other long term (current) drug therapy

== ENCOUNTER 2023-06-29 08:17 | Emergency (ER) | payer MEDICARE ==
[~2023-06-29] VITALS: Ht 180.3 cm; Wt 79.3 kg
[~2023-06-29 08:17] MED LIST changes: +HYDR-3713 PO
[2023-06-29 09:31] LABS: BASO % 0.3 % (0.0-1.0); EOS # 0.1 10^3/uL (0.0-0.5); EOS % 1.2 % (0.0-3.0); HEMATOCRIT 36.5 % (42.0-52.0); HEMOGLOBIN 12.3 g/dl (13.5-17.5); LYMPH # 0.6 10^3/uL (1.5-5.0); LYMPH % 7.3 % (24.0-44.0); MEAN CORPUSCULAR HEMOGLOBIN 32.6 pg (27.0-33.0); MEAN CORPUSCULAR HGB CONC 33.7 g/dl (32.0-36.5); MEAN CORPUSCULAR VOLUME 96.8 fl (80.0-96.0); MONO # 0.5 10^3/uL (0.0-0.8); MONO % 5.8 % (2.0-8.0); NEUTROPHILS # 7.3 10^3/uL (1.5-8.5); NEUTROPHILS % 85.1 % (36.0-66.0); PLATELET COUNT, AUTOMATED 214 10^3/uL (150-450); RED BLOOD COUNT 3.77 10^6/uL (4.30-6.10); WHITE BLOOD COUNT 8.6 10^3/uL (4.0-10.0)
[2023-06-29 09:48] LABS: CK-MB VALUE MASS < 1.0 NG/ML (<3.6)
[2023-06-29 09:50] LABS: BLOOD UREA NITROGEN 21 MG/DL (9-23); CALCIUM LEVEL 8.3 MG/DL (8.3-10.6); CARBON DIOXIDE LEVEL 27 MMOL/L (20-31); CHLORIDE LEVEL 106 MMOL/L (98-107); CREATININE FOR GFR 0.81 MG/DL (0.70-1.30); GLOMERULAR FILTRATION RATE > 60.0 (>35); GLUCOSE, FASTING 103 MG/DL (74-106); MAGNESIUM LEVEL 1.8 MG/DL (1.8-2.4); POTASSIUM SERUM 5.2 MMOL/L (3.5-5.1); SODIUM LEVEL 139 MMOL/L (136-145)
[2023-06-29 09:53] LABS: THYROID STIMULATING HORMONE 1.579 uIU/ML (0.55-4.78)
[2023-06-29 09:54] LABS: CPK CREATINE PHOSPHOKINASE 55 U/L (46-171); MB/CK RELATIVE INDEX 1.81 (< OR =4)
[2023-06-29 11:55] LABS: CK-MB VALUE MASS < 1.0 NG/ML (<3.6)
[2023-06-29 11:56] LABS: CPK CREATINE PHOSPHOKINASE 43 U/L (46-171); MB/CK RELATIVE INDEX 2.32 (< OR =4)
[2023-06-29] MEDS: NS 1,000 ML IV SCH (12:11)
[2023-06-29] MEDS: SOD POLYSTYRENE SULFONATE SUSP 15GM 60ML UD PO ONE (12:12)
[2023-06-29 12:51] LABS: CK-MB VALUE MASS < 1.0 NG/ML (<3.6); CPK CREATINE PHOSPHOKINASE 43 U/L (46-171); MB/CK RELATIVE INDEX 2.32 (< OR =4)
[2023-06-29 14:15] VITALS: BP 138/64; TEMP 97.3; O2SAT 98
== END 2023-06-29 15:04 | disposition home or self-care (01) ==
LOC: M ED 08:17
DX: R55 Syncope and collapse (principal); I49.3 Ventricular premature depolarization; E78.5 Hyperlipidemia, unspecified; G20.A1 Parkinson's disease without dyskinesia, without mention of fluctuations; G56.00 Carpal tunnel syndrome, unspecified upper limb; Z91.030 Bee allergy status; Z79.52 Long term (current) use of systemic steroids; Z79.82 Long term (current) use of aspirin; Z79.811 Long term (current) use of aromatase inhibitors; Z79.899 Other long term (current) drug therapy

== ENCOUNTER → 2023-07-18 | Outpatient (CLI) | payer MEDICARE | LOC: M CLY 15:03 | PROVIDERS: ATTEND Nurse Practitioner Family | DX: S22.42XD Multiple fractures of ribs, left side, subsequent encounter for fracture with routine healing (principal) ==

== ENCOUNTER → 2024-01-15 | Outpatient (REF) | payer MEDICARE ==
[~2024-01-15] MED LIST changes: -ROSU40TA4 PO; +ROSU40TA81 PO
== END ==
LOC: M SFHCCLAY 08:20
PROVIDERS: ATTEND Nurse Practitioner Family
DX: R55 Syncope and collapse (principal); Z86.79 Personal history of other diseases of the circulatory system; E78.5 Hyperlipidemia, unspecified; I25.10 Atherosclerotic heart disease of native coronary artery without angina pectoris; Z13.1 Encounter for screening for diabetes mellitus